=== PATIENT | male | born 1930 | race Caucasian/White ===

== ENCOUNTER 2016-10-01 16:19 | Emergency (ER) | payer OTHER ==
[~2016-10-01] VITALS: Ht 190.5 cm; Wt 110.1 kg
[~2016-10-01 16:19] MED LIST: ACET-1256 PO; ALBUAER19 INH; AMIO200T4 PO; CLC100X PO; GUAI1TAB55 PO; INDA1TAB3 PO; LPT/40 PO; METO-551 PO; OXYC1CAP5 PO; POLY335025 PO; POTA1CAP2 PO; PRT40 PO; SYMIN160 INH; TIOTCAP INH; TRIA3AER NAE; WARF1TAB PO; ZAFI1TAB10 PO
[2016-10-01 16:30] VITALS: TEMP 36.4; Ht 190.5 cm; Wt 110.1 kg
[2016-10-01] MEDS ORDERED: XYLOCAINE 1%/SOD BICARB 20 ML VIAL INFIL ONE (17:00)
[2016-10-01] MEDS ORDERED: TRIA1SPR4 NAE (17:07)
[2016-10-01] MEDS ORDERED: SPRIN/30 INH (17:07)
[2016-10-01 17:25] LABS: BASO % 0.4 %; BASO ABS # 0.03 K/uL (0-0.2); COMPLETE YES; EOS % 0.9 %; HEMATOCRIT 47.5 % (42-52); IG% 0.1 %; LYMPH % 7.8 %; LYMPH ABS # 0.66 K/uL (1.2-3.4); MEAN CELL VOLUME 91.5 fL (80-100); MEAN CORPUSCULAR HEMOGLOBIN 30.3 pg (25-34); MEAN CORPUSCULAR HGB CONC 33.1 g/dl (32-36); MEAN PLATELET VOLUME 10.9 fL (7.4-10.4); MONO % 9.8 %; PLATELET COUNT 151 K/uL (130-400); RED BLOOD COUNT 5.19 M/uL (4.7-6.1); WHITE BLOOD COUNT 8.51 K/uL (4.8-10.8)
[2016-10-01 17:41] LABS: BUN/CREATININE RATIO 18.9 (10-20); CREATININE 1.4 mg/dl (0.60-1.40); POTASSIUM 3.4 mmol/L (3.5-5.1)
--- NOTE | 2016-10-01 17:49 | DIAGNOSTIC IMAGING REPORT ---
CT OF THE HEAD WITHOUT CONTRAST CLINICAL HISTORY: Fall. Evaluate for bleed. COMPARISON STUDY: No previous studies for comparison. CT DOSE: 712.55 mGy.cm TECHNIQUE: Helical axial images of the head were obtained without IV contrast. Automated exposure control was utilized for the study. FINDINGS: No acute intracranial hemorrhage, midline shift or mass effect is present. Brain volume is normal for age. Ventricular system is unremarkable. The basilar cisterns are patent. There are no extra-axial collections. Moderate white matter hypodensity suggests small vessel disease. There is mild bilateral basal ganglia calcification. No findings to suggest acute dural sinus thrombosis or acute territorial infarct are noted. There is no calvarial fracture. IMPRESSION: 1. No acute intracranial findings. 2. No calvarial fracture. Electronically signed by: Robert Maier M.D. 10/01/2016 5:47 PM Dictated Date/Time: 10/01/2016 5:44 PM
[2016-10-01 19:57] LABS: INR 3.4 (0.9-1.1); PROTHROMBIN TIME (PATIENT) 38.7 SECONDS (9.0-12.0)
[2016-10-01 20:27] VITALS: BP 99/69; PULSE 71; O2SAT 93
--- NOTE | 2016-10-01 23:45 | EMERGENCY ROOM VISIT NOTE ---
History Report prepared by Bobo: Jessica Hammond Under the Supervision of: Dr. Ayush Rice M.D. First contact with patient: 16:41 Chief Complaint: FALL Stated Complaint: FELL,CUT ON RT EAR History of Present Illness The patient is an 86 year old male who presents to the Emergency Room with complaints of a fall that occurred just prior to arrival. He states that he was at his grandson's basketball game when he went to get a drink from the water fountain. He notes his balance is not the best and uses a walker. The patient turned after his drink and lost his balance and fell to the ground hitting his right ear on a plastic trash can. He denies LOC. He states he was not dizzy or lightheaded or feeling ill when he fell. He does state that he was getting over a recent cold but feels recovered. He does state that he has not been eating as much. The patient also fell onto his right elbow but denies any injuries. A nurse was in the stands at the game and told him to come to the ED for sutures to his laceration on his right ear. He denies chest pain, shortness of breath, or palpations. The patient is on Warafin. He notes that he feels at baseline now. His tetanus he believes is up-to-date. Source of History: patient Onset: just SECOND CHEF Position: ear (right) Quality: other (laceration) Timing: constant Associated Symptoms: No SOB, No chest pain Note: Patient notes he experienced lightheadedness. Review of Systems See HPI for pertinent positives & negatives. A total of 10 systems reviewed and were otherwise negative. Past Medical & Surgical Medical Problems: (1) Asthma (2) Heart valve disorder (3) History of DVT Family History Cancer Social History Smoking Status: Never Smoker Drug Use: none Marital Status: Housing Status: lives with family Occupation Status: retired Current/Historical Medications Scheduled Atorvastatin (Lipitor), 20 MG PO DAILY Budesonide/Formoterol Fumarate (Symbicort 160/4.5 Inhaler ), 2 PUFFS INH BID Guaifenesin Ext Rel (Mucinex Ext Rel), 600 MG PO Q12 Indapamide (Lozol), 1.25 MG PO DAILY Metoprolol Tartrate (Lopressor), 75 MG PO BID Pantoprazole (Pantoprazole Sodium), 40 MG PO BID Potassium Chloride (Potassium Chloride Er), 10 MEQ PO DAILY Tiotropium Lisle (Spiriva Handihaler), 1 CAP INH DAILY Triamcinolone Acetonide (Nasal (Nasacort Allergy 24Hr), 1 SPRAY BIMAL DAILY Warfarin Sodium (Coumadin), 1 TAB PO DAILY Zafirlukast (Accolate), 20 MG PO DAILY Scheduled PRN Acetaminophen (Tylenol), 500-1,000 MG PO Q6 PRN for Pain or Fever Allergies Coded Allergies: No Known Allergies (Verified , 08/14/12) Physical Exam Vital Signs Date Time Temp Pulse Resp B/P Pulse Ox O2 Delivery O2 Flow Rate FiO2 10/01/16 20:27 71 16 99/69 93 10/01/16 19:15 79 16 114/82 94 Room Air 10/01/16 17:44 87 16 131/88 92 Room Air 10/01/16 16:30 36.4 95 18 131/76 95 Room Air Physical Exam Constitutional: Vital signs reviewed. Eyes: Pupils are equal round reactive to light. Conjunctiva are noninjected. ENT: 6 cm superficial laceration behind the right ear without active bleeding. Pharynx is clear without erythema or exudate. Mucous membranes are moist. Neck supple without meningeal signs. No midline tenderness to the cervical spine. Respiratory: Clear to auscultation bilaterally. Breath sounds are equal bilaterally. Cardiovascular: Regular rate and rhythm. No rubs or gallops. GI: Soft, nondistended and nontender. Bowel sounds are present. Musculoskeletal: No lower extremity tenderness. No hip tenderness. No midline tenderness to the thoracic or lumbosacral spine. Integumentary: No cyanosis. Superficial abrasions to the right elbow without bony tenderness. Neurologic: The patient is awake and alert. Cranial nerves II-XII are intact. Motor is 5 out of 5 all extremities. Sensation is intact to light touch all extremities. Normal speech. No pronator drift. Psychiatric: Normal affect. Medical Decision & Procedures ER Provider Diagnostic Interpretation: CT results as stated below per my review and radiologist interpretation. CT OF THE HEAD WITHOUT CONTRAST CLINICAL HISTORY: Fall. Evaluate for bleed. COMPARISON STUDY: No previous studies for comparison. CT DOSE: 712.55 mGy.cm TECHNIQUE: Helical axial images of the head were obtained without IV contrast. Automated exposure control was utilized for the study. FINDINGS: No acute intracranial hemorrhage, midline shift or mass effect is present. Brain volume is normal for age. Ventricular system is unremarkable. The basilar cisterns are patent. There are no extra-axial collections. Moderate white matter hypodensity suggests small vessel disease. There is mild bilateral basal ganglia calcification. No findings to suggest acute dural sinus thrombosis or acute territorial infarct are noted. There is no calvarial fracture. IMPRESSION: 1. No acute intracranial findings. 2. No calvarial fracture. Electronically signed by: Robert Maier M.D. 10/01/2016 5:47 PM Dictated Date/Time: 10/01/2016 5:44 PM Laboratory Results 10/01/16 17:10 Red Blood Count 5.19, Mean Corpuscular Volume 91.5, Mean Corpuscular Hemoglobin 30.3, Mean Corpuscular Hemoglobin Concent 33.1, Mean Platelet Volume 10.9, Neutrophils (%) (Auto) 81.0, Lymphocytes (%) (Auto) 7.8, Monocytes (%) (Auto) 9.8, Eosinophils (%) (Auto) 0.9, Basophils (%) (Auto) 0.4, Neutrophils # (Auto) 6.90, Lymphocytes # (Auto) 0.66, Monocytes # (Auto) 0.83, Eosinophils # (Auto) 0.08, Basophils # (Auto) 0.03 10/01/16 17:10 Test 10/01/16 17:10 10/01/16 17:49 White Blood Count 8.51 K/uL (4.8-10.8) Red Blood Count 5.19 M/uL (4.7-6.1) Hemoglobin 15.7 g/dL (14.0-18.0) Hematocrit 47.5 % (42-52) Mean Corpuscular Volume 91.5 fL (80-100) Mean Corpuscular Hemoglobin 30.3 pg (25-34) Mean Corpuscular Hemoglobin Concent 33.1 g/dl (32-36) Platelet Count 151 K/uL (130-400) Mean Platelet Volume 10.9 fL (7.4-10.4) Neutrophils (%) (Auto) 81.0 % Lymphocytes (%) (Auto) 7.8 % Monocytes (%) (Auto) 9.8 % Eosinophils (%) (Auto) 0.9 % Basophils (%) (Auto) 0.4 % Neutrophils # (Auto) 6.90 K/uL (1.4-6.5) Lymphocytes # (Auto) 0.66 K/uL (1.2-3.4) Monocytes # (Auto) 0.83 K/uL (0.11-0.59) Eosinophils # (Auto) 0.08 K/uL (0-0.5) Basophils # (Auto) 0.03 K/uL (0-0.2) RDW Standard Deviation 44.3 fL (36.4-46.3) RDW Coefficient of Variation 13.3 % (11.5-14.5) Immature Granulocyte % (Auto) 0.1 % Immature Granulocyte # (Auto) 0.01 K/uL (0.00-0.02) Anion Gap 11.0 mmol/L (3-11) Est Creatinine Clear Calc Drug Dose 52.6 ml/min Estimated GFR () 53.1 Estimated GFR (Non- 45.8 BUN/Creatinine Ratio 18.9 (10-20) Calcium Level 9.0 mg/dl (8.5-10.1) Troponin I < 0.015 ng/ml (0-0.045) Prothrombin Time 38.7 SECONDS (9.0-12.0) Prothromb Time International Ratio 3.4 (0.9-1.1) Laboratory results as reviewed by me. ECG Indication: other (Fall) Rate (beats per minute): 89 Rhythm: sinus rhythm Findings: 1st degree AV block, LBBB Change: LBBB is new from November 2014. ED Course 1648: The patient was evaluated in room C6. A complete history and physical exam was performed. 1699: Buffered Lidocaine 1% Inj 20 ml INFIL. 1924: Laceration repaired by Luda RAYGOZA. I discussed the test results with the patient. Waiting results of INR. 2027: I spoke with the patient about his elevated INR. He will note take his Coumadin dosage angel. 2031: Upon reevaluation, the patient appeared to have improvement of his symptoms. I discussed angel's findings with him. He verbalized agreement of the treatment plan. He was discharged home. Medical Decision This is an 86-year-old male on Coumadin who presents with injuries after fall. Differential diagnosis includes contusion, concussion, skull fracture, intracranial hemorrhage, laceration. I did perform a limited focused review of portions of the patient's old chart on the electronic medical record. The patient has had no recent pertinent visits to this hospital. I did evaluate the patient as noted above. The patient is presenting with what he thinks was a mechanical fall. He did state that before he got up to get a drink he did feel thirsty and slightly weak but he denies feeling that way at this time. He states that before he fell he did not feel lightheaded or weak or have any symptoms. He states he simply lost his balance when turning around from the water fountain. He is on Coumadin but has not taken his dose today. IV access was established. The patient was placed on a continuous nurse monitoring. I did order and personally review the patient's 12-lead EKG as described above. He does have a left bundle branch block which I did not see on his prior EKG. He denies having any chest discomfort or shortness of breath. It is unclear whether this is new or old. His last EKG available was from 2014. I did order and review the patient's blood work as noted in the electronic medical record. Troponin is negative. He has mild hypokalemia. His INR is 3.4. I did order a CT of the head. I did review the images myself as well as the radiology report as described above. There is no evidence of intracranial hemorrhage. I did discuss the test results with the patient and his . He has no symptoms at this time. His laceration was repaired by IDALMIS Galicia. Please see her dictation for further details. The patient was advised to hold his Coumadin tonight and restart it tomorrow. He will have his INR rechecked. He was given head injury and laceration precautions. Impression Primary Impression: Head injury Additional Impressions: Laceration of ear Fall Supratherapeutic INR Hypokalemia Scribe Attestation The scribe's documentation has been prepared under my direct and personally reviewed by me in its entirety. I confirm that the note above accurately reflects all work, treatment, procedures, and medical decision making performed by me. Departure Information Dispostion Home / Self-Care Referrals Galo Horton M.D. (PCP) Forms HOME CARE DOCUMENTATION FORM, IMPORTANT VISIT INFORMATION Patient Instructions ED Head Injury Closed, ED Laceration All, My [facility] Additional Instructions You have been examined and treated today on an emergency basis only. This is not a substitute for, or an effort to provide, complete comprehensive medical care. It is impossible to recognize and treat all injuries or illnesses in a single emergency department visit. It is therefore important that you follow up closely with your physician. Call as soon as possible for an appointment. Return for worsening symptoms or if you develop fever, vomiting, headache, chest pain, shortness breath or any other concerning symptoms. Your sutures need to be removed in one week. Problem Qualifiers Primary Impression: Head injury Encounter type: initial encounter Qualified Codes: S09.90XA - Unspecified injury of head, initial encounter Additional Impressions: Laceration of ear Encounter type: initial encounter Laterality: right Qualified Codes: S01.311A - Laceration without foreign body of right ear, initial encounter Fall Encounter type: initial encounter Qualified Codes: W19.XXXA - Unspecified fall, initial encounter
--- NOTE | 2016-10-02 11:05 | EMERGENCY ROOM VISIT NOTE ---
ED Visit Note EMERGENCY DEPARTMENT PROCEDURE NOTE: I was asked by Dr. Rice to repair the right ear wound of this 86-year-old white male patient. Please refer to their dictation for the complete history, physical exam, and ED course. EMERGENCY DEPARTMENT COURSE: The wound was prepped with Betadine and draped with sterile towels. The wound was anesthetized with 1% plain buffered lidocaine. The 6 cm L-shaped laceration was irrigated copiously using normal saline solution and direct pressure irrigation. Wound was explored thoroughly. There was no evidence for foreign body. There was no cartilage involvement. The wound was repaired using 11, 6-0 nylon sutures. Bacitracin was applied. Patient tolerated the procedure well.
== END 2016-10-01 20:49 | disposition home or self-care (01) ==
LOC: C.EDB 16:19 → C.EDC 20:49
DX: S01.311A Laceration without foreign body of right ear, initial encounter (principal); S09.90XA Unspecified injury of head, initial encounter; W19.XXXA Unspecified fall, initial encounter; Y93.67 Activity, basketball; I44.0 Atrioventricular block, first degree; I44.7 Left bundle-branch block, unspecified; E87.6 Hypokalemia; J45.909 Unspecified asthma, uncomplicated; Z95.2 Presence of prosthetic heart valve; Z86.718 Personal history of other venous thrombosis and embolism; Z79.01 Long term (current) use of anticoagulants; Z79.899 Other long term (current) drug therapy; Z80.9 Family history of malignant neoplasm, unspecified

== ENCOUNTER → 2017-03-22 | Outpatient (CLI) | payer OTHER ==
[~2017-03-22] MED LIST changes: -ALBUAER19 INH; -AMIO200T4 PO; -CLC100X PO; -OXYC1CAP5 PO; -POLY335025 PO; +SPRIN/30 INH; -TIOTCAP INH; +TRIA1SPR4 NAE; -TRIA3AER NAE
[2017-03-22 11:10] LABS: BASO % 0.6 %; BASO ABS # 0.03 K/uL (0-0.2); COMPLETE YES; EOS % 4.1 %; HEMATOCRIT 48.2 % (42-52); IG% 0.2 %; LYMPH % 23.5 %; LYMPH ABS # 1.25 K/uL (1.2-3.4); MEAN CELL VOLUME 92.2 fL (80-100); MEAN CORPUSCULAR HEMOGLOBIN 29.1 pg (25-34); MEAN CORPUSCULAR HGB CONC 31.5 g/dl (32-36); MEAN PLATELET VOLUME 10.3 fL (7.4-10.4); MONO % 13.4 %; NEUT % 58.2 %; PLATELET COUNT 167 K/uL (130-400); RED BLOOD COUNT 5.23 M/uL (4.7-6.1); WHITE BLOOD COUNT 5.31 K/uL (4.8-10.8)
[2017-03-22 11:39] LABS: ALT/SGPT 29 U/L (12-78); AST/SGOT 37 U/L (15-37); BLOOD UREA NITROGEN 24 mg/dl (7-18); BUN/CREATININE RATIO 18.7 (10-20); CALCIUM 8.9 mg/dl (8.5-10.1); CARBON DIOXIDE 30 mmol/L (21-32); CHLORIDE 104 mmol/L (98-107); GLUCOSE 102 mg/dl (70-99); POTASSIUM 3.7 mmol/L (3.5-5.1); SODIUM 142 mmol/L (136-145)
[2017-03-22 11:50] LABS: CHOLESTEROL 135 mg/dl (0-200); CHOLESTEROL/HDL RATIO 3.6; HDL CHOLESTEROL 37 mg/dl; LDL CHOLESTEROL CALCULATED 75 mg/dl; TRIGLYCERIDES 116 mg/dl (0-150); VERY LOW DENSITY LIPOPROT CALC 23 mg/dl
[2017-03-22 12:33] LABS: ESTIMATED AVERAGE GLUCOSE 117 mg/dl; HA1C FLAG Normal (Normal)
[2017-03-22 15:01] LABS: URINE APPEARANCE CLEAR (CLEAR); URINE BILIRUBIN NEG (NEG); URINE COLOR YELLOW; URINE NITRITE NEG (NEG); URINE PH 7.5 (4.5-7.5); URINE SPECIFIC GRAVITY 1.018 (1.000-1.030); UROBILINOGEN NEG (NEG)
[2017-03-22 15:06] LABS: MANUAL MICROSCOPIC REQUIRED? NO; REVIEW REQ? NO
== END | disposition home or self-care (01) ==
LOC: C.LABBC 08:29
PROVIDERS: ATTEND Internal Medicine
DX: N28.9 Disorder of kidney and ureter, unspecified (principal); E78.00 Pure hypercholesterolemia, unspecified; R73.9 Hyperglycemia, unspecified; I10 Essential (primary) hypertension

== ENCOUNTER → 2017-09-29 | Outpatient (CLI) | payer OTHER ==
[2017-09-29 12:21] LABS: INR 1.3 (0.9-1.1)
== END | disposition home or self-care (01) ==
LOC: C.LABSPEC 12:04
PROVIDERS: ATTEND Internal Medicine
DX: Z86.718 Personal history of other venous thrombosis and embolism (principal); Z51.81 Encounter for therapeutic drug level monitoring; Z79.01 Long term (current) use of anticoagulants

== ENCOUNTER → 2017-11-08 | Outpatient (CLI) | payer OTHER ==
[2017-11-08 13:11] LABS: BASO % 0.4 %; BASO ABS # 0.02 K/uL (0-0.2); EOS % 2.3 %; EOS ABS # 0.13 K/uL (0-0.5); HEMATOCRIT 47.1 % (42-52); HEMOGLOBIN 15.4 g/dL (14.0-18.0); LYMPH % 17.5 %; LYMPH ABS # 0.99 K/uL (1.2-3.4); MEAN CELL VOLUME 92.9 fL (80-100); MEAN CORPUSCULAR HEMOGLOBIN 30.4 pg (25-34); MEAN CORPUSCULAR HGB CONC 32.7 g/dl (32-36); MEAN PLATELET VOLUME 10.4 fL (7.4-10.4); MONO % 11.3 %; MONO ABS # 0.64 K/uL (0.11-0.59); NEUT % 68.5 %; NEUT ABS # 3.88 K/uL (1.4-6.5); PLATELET COUNT 160 K/uL (130-400); RED CELL DISTRIBUTION WIDTH CV 13.4 % (11.5-14.5); RED CELL DISTRIBUTION WIDTH SD 45.5 fL (36.4-46.3); WHITE BLOOD COUNT 5.66 K/uL (4.8-10.8)
[2017-11-08 14:02] LABS: ALT/SGPT 36 U/L (12-78); AST/SGOT 38 U/L (15-37); BLOOD UREA NITROGEN 31 mg/dl (7-18); CARBON DIOXIDE 30 mmol/L (21-32); CHOLESTEROL 123 mg/dl (0-200); CREATININE 1.48 mg/dl (0.60-1.40); GLUCOSE 103 mg/dl (70-99); POTASSIUM 3.6 mmol/L (3.5-5.1); SODIUM 140 mmol/L (136-145)
[2017-11-08 14:03] LABS: HEMOGLOBIN A1C 5.6 % (4.5-5.6)
[2017-11-08 14:12] LABS: LDL CHOLESTEROL CALCULATED 67 mg/dl
== END | disposition home or self-care (01) ==
LOC: C.LABBC 11:13
PROVIDERS: ATTEND Internal Medicine
DX: E78.00 Pure hypercholesterolemia, unspecified (principal)

== ENCOUNTER 2019-02-04 20:20 | Inpatient (IN) ==
--- OUTSIDE RECORDS SUMMARY | 2019-02-04 20:24 | External Medical Summary | Continuity of Care Document ---
:1930 Author Name Jackie Baez, Provider Address Unavailable Unavailable , Care Team Providers Name Role Phone Rad Masters M.D. 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) Constipation (564.00) (K59.00) Anemia due to gastrointestinal blood loss (280.0) (D50.0) Enlarged prostate with lower urinary tract symptoms (LUTS) ( 600.01) (N40.1) Restrictive lung disease (518.89) (J98.4) Asthma (493.90) (J45.909) 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) Anticoagulant long-term use (V58.61) (Z79.01) Aortic valve stenosis (424.1) (I35.0) 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 Refills: 0 Indapamide 1.25 MG Oral Tablet; Take 1 tablet daily Nestor Horton Start: 12-Sep-2018 Quantity: 90 Refills: 3 Metoprolol Tartrate 25 MG Oral Tablet; TAKE 2 TABLET T wice daily Nestor Horton Start: 01-Feb-2016 Quantity: 360 Refills: 3 Probiotic Oral Capsule; TAKE 1 CAPSULE 3 times daily Refills: 0 Amoxicillin 500 MG Oral Capsule; TAKE 4 CAPSULES 1 HOUR PRIOR TO DENTAL APPOINTMENT. Nestor Horton Quantity: 16 Refills: 0 Tylenol Extra Strength 500 MG Oral Tablet; Take as directed Refills: 0 Warfarin Sodium 2.5 MG Oral Tablet; Take 1 tablet daily KODY Mayorga Start: 10-Apr-2018 Quantity: 90 Refills: 3 Ipratropium [place]wood 0.03 % Nasal Solutio n; 1-2 puffs in each nostril daily to bid as needed Nestor Masters Start: 13-Aug-2018 Quantity: 1 30 ML Bottle Refills: 11 Atorvastatin Calcium 20 MG Oral Tablet; TAKE 1 TABLET AT BEDTIME KODY Oswald Start: 07-Jun-2018 Quantity: 90 Refills: 3 Mucinex 600 MG TBCR; TAKE 1 OR 2 TABLETS TWICE DAILY NEED ED FOR CONGESTION. Refills: 0 Pantoprazole Sodium 40 MG Oral Tablet De layed Release; Take 1 tablet twice a day KODY Oswald Start: 07-Jun-2018 Quantity: 180 Refills: 3 Procedures History of Hip Replacement Status: Compl eted History of Shoulder Arthroplasty Total Shoulder Replacement Status: Completed History of Interruption Inferior Vena Cava Andre Filter Status: Completed Placement History of Diagnostic Esophagogastroduodenoscopy Status: Completed H/O aortic valve replacement Immunizations Influenza On: 05-Jul-2011 16:03 Lot #: [id number], [employer] PASTEUR Influenza On: 06-Jul-2012 11:12 Lot #: [id number], [employer]FI PA[employer]UR Influenza On: 16-Jul-2013 11:36 Lot #: [id number], SANOFI PASTEUR Fluzone INJ On: 30-Jul-2014 9:24 Lot #: [id number], SANOFI PASTEUR Fluzone High-Dose Intramuscular Suspension On: 14-Jul-2015 9: 20 Lot #: [id number], SANOFI PASTEUR Influenza On: 16-Jul-2016 16:42 Lot #: [id number], SANOFI PASTEUR Family History Unknown Family Member Family history of Nephrolithiasis Status: Active Commen ts: Family History Family history of Cancer Status: Active Comments: Famil y History natural son Family history of Cancer Status: Active Social History - Smoking Status Never smoker Plan of Treatment Planned Encounters Appointment; Claudia Oswald PA-C Start: 18-Mar-2019 13:30 Req uest Planned Observations Planned Goals not documented Results No Known Results Results not documented Vital Signs 31-Jan-2019 10:45 other 2.6 Comments: INR other 2.1875 Comments: INR Goal 18-Jan-2019 15:02 other 1.8 Comments: INR other 2.1875 Comments: INR Goal Encounters Appointment; Galo Horton M.D. 17-Dec-2018 13:30 Encounter Diagnosis: Problem not documented Appointment; Galo Horton M.D. 13-Sep-2018 15:15 Encounter Diagnosis: Problem not documented Appointment; Maurice Macias M.D. 16-Aug-2018 10:30 Encounter Diagnosis: Problem not documented Appointment; Rad Masters M.D. 13-Aug-2018 11:30 Encounter Diagnosis: Problem not documented Appointment; Pulmonary, Funct Testing 13-Aug-2018 11:15 Encounter Diagnosis: Problem not documented Appointment; Galo Horton M.D. 12-Jun-2018 13:15 Encounter Diagnosis: Problem not documented Appointment; Galo Horton M.D. 27-Feb-2018 13:45 Encounter Diagnosis: Problem not documented Appointment; Maurice Macias M.D. 14-Feb-2018 15:15 Encounter Diagnosis: Problem not documented Appointment; Echo/Stress, Echo/Stress 01-Feb-2018 8:45 Encounter Diagnosis: Problem not documented Appointment; Rad Masters M.D. 22-Jan-2018 9:30 Encounter Diagnosis: Problem not documented Appointment; Pulmonary, Funct Testing 22-Jan-2018 9:15 Encounter Diagnosis: Problem not documented Appointment; [facility] 14-Nov-2017 13:50 Encounter Diagnosis: Problem not documented Appointment; Galo Horton M.D. 14-Nov-2017 13:00 Encounter Diagnosis: Problem not documented Appointment; Maurice Macias M.D. 01-Aug-2017 13:00 Encounter Diagnosis: Problem not documented Appointment; Galo Horton M.D. 31-Jul-2017 11:45 Encounter Diagnosis: Problem not documented Appointment; Rad Masters M.D. 24-Jul-2017 9:30 Encounter Diagnosis: Problem not documented Appointment; Pulmonary, Funct Testing 24-Jul-2017 9:15 Encounter Diagnosis: Problem not documented Appointment; Galo Horton M.D. 28-Mar-2017 11:45 Encounter Diagnosis: Problem not documented Appointment; Claudia Oswald PA-C 18-Mar-2019 13:30 Encounter Diagnosis: Problem not documented
[2019-02-04] MEDS ORDERED: ONDANSETRON INJ 2 MG/ML 2 ML VIAL ONE (20:38)
[2019-02-04 20:51] LABS: Basophils # (auto) 0.02 K/uL (0-0.2); Basophils % (auto) 0.3 %; Eosinophils # (auto) 0.02 K/uL (0-0.5); Eosinophils % (auto) 0.3 %; Hematocrit (blood only) 41.7 % (42-52); Hemoglobin 13.9 g/dL (14.0-18.0); Immature Granulocytes # (auto) 0.01 K/uL (0.00-0.02); Immature Granulocytes % (auto) 0.1 %; Lymphocytes # (auto) 0.56 K/uL (1.2-3.4); Lymphocytes % (auto) 8.2 %; Mean Corpuscular Hgb Conc 33.3 g/dL (32-36); Mean Corpuscular Volume 89.9 fL (80-100); Mean Platelet Volume 10.2 fL (7.4-10.4); Monocytes # (auto) 0.46 K/uL (0.11-0.59); Monocytes % (auto) 6.7 %; Neutrophils # (auto) 5.76 K/uL (1.4-6.5); Neutrophils % (auto) 84.4 %; Platelet Count 159 K/uL (130-400); RDW Coefficient of Variation 14.3 % (11.5-14.5); Red Blood Count 4.64 M/uL (4.7-6.1); White Blood Count 6.83 K/uL (4.8-10.8)
[2019-02-04] MEDS ORDERED: MoRPHine SULFATE 4 MG/ML 1 ML CARP\\VIAL IV STA (20:56)
[2019-02-04 21:05] LABS: Albumin Level 3.4 gm/dl (3.4-5.0); BUN Creatinine Ratio 21.8 (10-20); Creatinine Clr Calc Pharmacy 40.8 ml/min; Est GFR (African American) 49.4; Est GFR (Non-African American) 42.6; Potassium 4.1 mmol/L (3.5-5.1)
[2019-02-04 21:08] LABS: Albumin Globulin Ratio 0.8 (0.9-2); Bilirubin,Total 0.9 mg/dl (0.2-1); Globulin 4.1 gm/dl (2.5-4.0); Total Protein 7.5 gm/dl (6.4-8.2)
[2019-02-04] MEDS ORDERED: ONDANSETRON INJ 2 MG/ML 2 ML VIAL IV STA (21:17)
--- NOTE | 2019-02-04 22:02 | Ultrasound Report ---
US gallbladder HISTORY: Pain. Nausea. upper pain eval for cholecystitis COMPARISON: 11/25/2014 FINDINGS: Nonvisualization of the gallbladder due to overlying bowel. Both ductal system not seen. Pancreas is unremarkable. No evidence for renal hydronephrosis. Trace free fluid. Chronic region. IMPRESSION: 1. Limited study due to overlying bowel content. 2. Nonvisualization of the gallbladder and biliary ductal system. 3. Trace perihepatic fluid. The above report was generated using voice recognition software. It may contain grammatical, syntax or spelling errors. Electronically signed by: Bulmaro Chi M.D. 02/04/2019 10:01 PM
[2019-02-04 23:46] LABS: Appearance Urine Cloudy (Clear); Bacteria Urine Automated Negative (Negative); Bilirubin Urine Negative (Negative); Blood Urine Negative (Negative); Color Urine Dark Yellow; Epithelial Cell Urine Auto >30 /lpf (0-5); Glucose Urine UA Negative (Negative); Ketones Urine Trace (Negative); Leukocyte Esterase Urine Negative (Negative); Nitrite Urine Negative (Negative); Protein Urine Negative (Negative); RBC Urine Automated 0-4 /hpf (0-4); Specific Gravity Urine 1.021 (1.000-1.030); Urobilinogen Urine Negative (Negative); pH Urine 5.5 (4.5-7.5)
[2019-02-05] MEDS ORDERED: MoRPHine SULFATE 2 MG/ML CARP IV STA (00:31)
--- NOTE | 2019-02-05 00:34 | Emergency Department Note ---
Entered by Shivani Stewart acting as a scribe for Ayush Rice MD History of Present Illness General Chief complaint: Abdominal Pain Stated complaint: Abdominal Pain Source: patient History of Present Illness Onset (ago): hour(s) 8 Location: abdomen (upper) Pain Consistency: + other (persistent ) Maximum Pain Intensity: 6 Current Pain Intensity: 6 Quality: + aching and + sharp Associated symptoms: + nausea/vomiting and + other (negative urinary symptoms; negative blood in urine; negative black or bloody stools ); no chest pain and no shortness of breath The patient is a 88 year old male who presents to the Emergency Room with complaints of persistent abdominal pain that began at 1230 today, about 8 hours prior to arrival. The patient describes this pain as sharp and aching. He rates his pain at a 6/10. The patient states that he has had nausea and vomiting during this time. He denies chest pain, shortness of breath, urinary symptoms, blood in his urine, and black or bloody stools. The patient states that he is on Warfarin. He states that he still has his gallbladder. Home Medications Home Medications Medication Instructions Recorded Confirmed Type ZAFIRLUKAST (ACCOLATE) 20 mg PO DAILY #0 12/28/11 History ATORVASTATIN (LIPITOR) 20 mg PO DAILY #0 tab 03/22/13 History Indapamide (Lozol) 1.25 mg PO DAILY #0 tab 03/22/13 History Budesonide/Formoterol Fumarate 2 puff INHALATION BID #0 inhaler 11/08/13 History (Symbicort 160/4.5 Inhaler ) POTASSIUM CHLORIDE (POTASSIUM 10 meq PO DAILY #0 11/08/13 History CHLORIDE ER) Acetaminophen (Tylenol) 500 - 1,000 mg PO Q6 PRN #0 tab 11/13/14 History GUAIFENESIN EXT REL (MUCINEX EXT 600 mg PO Q12 #0 tab 11/13/14 History REL) METOPROLOL TARTRATE (LOPRESSOR) 75 mg PO BID #0 tab 11/13/14 History Pantoprazole (Pantoprazole Sodium) 40 mg PO BID #60 tab 11/19/14 Rx WARFARIN SODIUM (COUMADIN) 1 tab PO DAILY 30 Days #30 tab 01/28/16 History TIOTROPIUM BROMIDE (Spiriva 1 cap INHALATION DAILY #0 inhaler 01/21/17 History Handihaler) Triamcinolone Acetonide (Nasal 1 spray BIMAL DAILY #0 10/01/16 History (Nasacort Allergy 24Hr) Allergies Allergy/AdvReac Type Severity Reaction Status Date / Time No Known Allergies Allergy Unknown Verified 08/14/12 09:07 Past Med/Surg History Medical History Asthma (Chronic) Heart valve disorder (Chronic) Social History Feels Safe at Home: Yes Smoking Status: Never smoker Review of Systems See HPI for pertinent positives & negatives. and A total of 10 systems reviewed and were otherwise negative Physical Exam Vital Signs Vital Signs - 24 hr 02/04/19 20:24 02/04/19 20:26 02/04/19 20:52 Temperature 36.7 C Temperature Source Oral Sepsis Recent Fever Within 48 Hours No Sepsis Action Taken by Nursing No Action Required Pulse Rate 75 72 73 Pulse Rate [Bilateral] Pulse Rate from SpO2 Sensor 72 72 Pulse Rhythm Regular Pulse Rhythm [Bilateral] Pulse Strength Normal Pulse Strength [Bilateral] Respiratory Rate 19 18 32 H Respiratory Effort / Characteristics Non-Labored Spontaneous Respiratory Depth Normal Respiratory Pattern Regular Blood Pressure 169/84 H 169/84 H Blood Pressure [Right Arm] Blood Pressure Mean 112 112 Blood Pressure Mean [Right Arm] Blood Pressure Position Lying Blood Pressure Position [Right Arm] Pulse Oximetry 95 93 93 Oxygen Delivery Method Room Air Oxygen Flow Rate 02/04/19 21:00 02/04/19 21:05 02/04/19 21:10 Temperature Temperature Source Sepsis Recent Fever Within 48 Hours Sepsis Action Taken by Nursing Pulse Rate 70 65 Pulse Rate [Bilateral] Pulse Rate from SpO2 Sensor 71 65 Pulse Rhythm Pulse Rhythm [Bilateral] Pulse Strength Pulse Strength [Bilateral] Respiratory Rate 27 H 19 Respiratory Effort / Characteristics Respiratory Depth Respiratory Pattern Blood Pressure Blood Pressure [Right Arm] Blood Pressure Mean Blood Pressure Mean [Right Arm] Blood Pressure Position Blood Pressure Position [Right Arm] Pulse Oximetry 91 98 97 Oxygen Delivery Method Room Air Nasal Cannula Oxygen Flow Rate 3 02/04/19 21:11 02/04/19 21:20 02/04/19 21:30 Temperature Temperature Source Sepsis Recent Fever Within 48 Hours Sepsis Action Taken by Nursing Pulse Rate 73 70 72 Pulse Rate [Bilateral] Pulse Rate from SpO2 Sensor 73 71 71 Pulse Rhythm Pulse Rhythm [Bilateral] Pulse Strength Pulse Strength [Bilateral] Respiratory Rate 19 15 20 Respiratory Effort / Characteristics Respiratory Depth Respiratory Pattern Blood Pressure 157/82 H Blood Pressure [Right Arm] Blood Pressure Mean 107 Blood Pressure Mean [Right Arm] Blood Pressure Position Blood Pressure Position [Right Arm] Pulse Oximetry 98 97 96 Oxygen Delivery Method Oxygen Flow Rate 02/04/19 22:24 02/04/19 22:30 02/04/19 22:40 Temperature Temperature Source Sepsis Recent Fever Within 48 Hours Sepsis Action Taken by Nursing Pulse Rate 76 66 66 Pulse Rate [Bilateral] Pulse Rate from SpO2 Sensor 75 67 69 Pulse Rhythm Pulse Rhythm [Bilateral] Pulse Strength Pulse Strength [Bilateral] Respiratory Rate 22 17 18 Respiratory Effort / Characteristics Respiratory Depth Respiratory Pattern Blood Pressure 177/110 H Blood Pressure [Right Arm] Blood Pressure Mean 132 Blood Pressure Mean [Right Arm] Blood Pressure Position Blood Pressure Position [Right Arm] Pulse Oximetry 97 97 95 Oxygen Delivery Method Oxygen Flow Rate 02/04/19 22:47 02/04/19 22:49 02/04/19 23:26 Temperature Temperature Source Sepsis Recent Fever Within 48 Hours Sepsis Action Taken by Nursing Pulse Rate 73 Pulse Rate [Bilateral] 77 Pulse Rate from SpO2 Sensor 73 Pulse Rhythm Pulse Rhythm [Bilateral] Regular Pulse Strength Pulse Strength [Bilateral] Normal Respiratory Rate 24 18 Respiratory Effort / Characteristics Non-Labored Spontaneous Respiratory Depth Normal Respiratory Pattern Regular Blood Pressure 165/90 H Blood Pressure [Right Arm] 165/83 H Blood Pressure Mean 115 Blood Pressure Mean [Right Arm] 110 Blood Pressure Position Blood Pressure Position [Right Arm] Lying Pulse Oximetry 88 L 93 97 Oxygen Delivery Method Room Air Nasal Cannula Room Air Oxygen Flow Rate 3 02/04/19 23:40 Temperature Temperature Source Sepsis Recent Fever Within 48 Hours Sepsis Action Taken by Nursing Pulse Rate Pulse Rate [Bilateral] Pulse Rate from SpO2 Sensor Pulse Rhythm Pulse Rhythm [Bilateral] Pulse Strength Pulse Strength [Bilateral] Respiratory Rate 18 Respiratory Effort / Characteristics Non-Labored Spontaneous Respiratory Depth Normal Respiratory Pattern Blood Pressure Blood Pressure [Right Arm] Blood Pressure Mean Blood Pressure Mean [Right Arm] Blood Pressure Position Blood Pressure Position [Right Arm] Pulse Oximetry 97 Oxygen Delivery Method Nasal Cannula Oxygen Flow Rate 3 Constitutional: Vital signs reviewed. Eyes: Pupils are equal round reactive to light. Conjunctiva are noninjected. ENT: Pharynx is clear without erythema or exudate. Mucous membranes are moist. Neck supple without meningeal signs. Respiratory: Clear to auscultation bilaterally. Breath sounds are equal bilaterally. Cardiovascular: Regular rate and rhythm. No rubs or gallops. GI: Soft, nondistended. Bowel sounds are present. Epigastric RUQ tenderness. Negative Verduzco's sign. Musculoskeletal: No peripheral edema. No lower extremity tenderness. Integumentary: No cyanosis. Neurological: The patient is awake and alert. No focal deficits. Psychiatric: Normal affect. Course 2048: The patient was evaluated in room B10, and a complete history and physical examination were performed. 2226: I checked on the patient and updated him on his test results. The patient is going to get a CT scan because his gallbladder could not be seen on US. 0019: I discussed the test results with the patient. He states that his pain is creeping back. 0022: I discussed the case with Dr. [facility] Hospitalist who accepted the patient for further evaluation. Administered Medications Discontinued Medications Morphine Sulfate (Morphine Sulfate) 4 mg IV NOW STA Stop: 02/04/19 20:57 Last Admin: 02/04/19 21:08 Dose: 4 mg Documented by: [id number] Ondansetron HCl (Zofran) Confirm Administered Dose 4 mg .ROUTE .STK-MED ONE Stop: 02/04/19 20:39 Last Admin: 02/04/19 20:50 Dose: 4 mg Documented by: [id number] Ondansetron HCl (Zofran) 4 mg IV NOW STA Stop: 02/04/19 21:18 Last Admin: 02/04/19 21:18 Dose: Not Given Documented by: [id number] Medical Decision Making Differential Diagnosis Differential diagnoses include cholelithiasis, cholecystitis, pancreatitis, peptic ulcer disease, choledocholithiasis, and others were considered. Medical Records Attestation: I reviewed the patient's medical records. (The patient has no recent pertinent visits. ) Home Medications Current Medication List: was personally reviewed by me Laboratory Data Attestation: I reviewed the patient's lab results. Result diagrams: 02/04/19 20:33 02/04/19 20:33 Lab Results 02/04/19 02/04/19 02/04/19 Range/Units 20:33 20:33 23:35 WBC 6.83 (4.8-10.8) K/uL RBC 4.64 L (4.7-6.1) M/uL Hgb 13.9 L (14.0-18.0) g/dL Hct 41.7 L (42-52) % MCV 89.9 (80-100) fL MCH 30.0 (25-34) pg MCHC 33.3 (32-36) g/dL RDW Std Deviation 47.0 H (36.4-46.3) fL RDW Coeff of June 14.3 (11.5-14.5) % Plt Count 159 (130-400) K/uL MPV 10.2 (7.4-10.4) fL Immature Gran % (Auto) 0.1 % Neut % (Auto) 84.4 % Lymph % (Auto) 8.2 % [place] % (Auto) 6.7 % Eos % (Auto) 0.3 % Baso % (Auto) 0.3 % Immature Gran # (Auto) 0.01 (0.00-0.02) K/uL Neut # (Auto) 5.76 (1.4-6.5) K/uL Lymph # (Auto) 0.56 L (1.2-3.4) K/uL [place] # (Auto) 0.46 (0.11-0.59) K/uL Eos # (Auto) 0.02 (0-0.5) K/uL Baso # (Auto) 0.02 (0-0.2) K/uL Sodium 142 (136-145) mmol/L Potassium 4.1 (3.5-5.1) mmol/L Chloride 104 (98-107) mmol/L Carbon Dioxide 29 (21-32) mmol/L Anion Gap 9.0 (3-11) BUN 32 H (7-18) mg/dl Creatinine 1.47 H (0.6-1.4) mg/dl Est Cr Clr Drug Dosing 40.8 ml/min Est GFR ( Amer) 49.4 Est GFR (Non-Af Amer) 42.6 BUN/Creatinine Ratio 21.8 H (10-20) Glucose 119 H (70-99) mg/dl Calcium 10.0 (8.5-10.1) mg/dl Total Bilirubin 0.9 (0.2-1) mg/dl AST 45 H (15-37) U/L ALT 32 (12-78) U/L Alkaline Phosphatase 82 (45-117) U/L Total Protein 7.5 (6.4-8.2) gm/dl Albumin 3.4 (3.4-5.0) gm/dl Globulin 4.1 H (2.5-4.0) gm/dl Albumin/Globulin Ratio 0.8 L (0.9-2) Lipase 142 (73-393) U/L Urine Color Dark Yellow Urine Appearance Cloudy A (Clear) Urine pH 5.5 (4.5-7.5) Ur Specific [place] 1.021 (1.000-1.030) Urine Protein Negative (Negative) Urine Glucose (UA) Negative (Negative) Urine Ketones Trace H (Negative) Urine Blood Negative (Negative) Urine Nitrite Negative (Negative) Urine Bilirubin Negative (Negative) Urine Urobilinogen Negative (Negative) Ur Leukocyte Esterase Negative (Negative) Urine WBC (Auto) 1-5 (0-5) /hpf Urine RBC (Auto) 0-4 (0-4) /hpf U Hyaline Cast (Auto) 1-5 (0-5) /lpf U Epithel Cells (Auto) >30 H (0-5) /lpf Urine Bacteria (Auto) Negative (Negative) Imaging Data Radiologist's Impression: Radiology results as stated below per my review and the radiologist's interpretation: US gallbladder HISTORY: Pain. Nausea. upper pain eval for cholecystitis COMPARISON: 11/25/2014 FINDINGS: Nonvisualization of the gallbladder due to overlying bowel. Both ductal system not seen. Pancreas is unremarkable. No evidence for renal hydronephrosis. Trace free fluid. Chronic region. IMPRESSION: 1. Limited study due to overlying bowel content. 2. Nonvisualization of the gallbladder and biliary ductal system. 3. Trace perihepatic fluid. The above report was generated using voice recognition software. It may contain grammatical, syntax or spelling errors. Electronically signed by: Bulmaro Chi M.D. 02/04/2019 10:[address] ABDOMEN & PELVIS Without Contrast: Multiple loops of dilated small bowel in the lower abdomen/pelvis with a transition point in the right lower quadrant (series 2 image 70) is concerning for acute small bowel obstruction. There is a small amount of fat stranding and fluid surrounding the bowel loops. No free air. The stomach is distended. Cholelithiasis without evidence of cholecystitis. The common bile duct is dilated measuring up to 14 mm. Mild to moderate intrahepatic biliary dilatation. No definite CT evidence of choledocholithiasis. Recommend correlation with liver function tests and consider MRCP if clinically indicated. Scattered water density cysts in the liver are likely benign. Scattered large water density exophytic cysts in both kidneys are likely benign. No hydronephrosis or nephrolithiasis. 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 Multiple coarsely calcified masses in the pelvis appear grossly unchanged from previous study and possibly represent fibroids Unusual soft tissue density measuring 3.7 x 3.4 cm located posterior to the sacrum associated with a skin defect could represent chronic changes from sacral decubitus ulcer and soft tissue infection. No fluid collection is seen to suggest abscess. Recommend clinical evaluation. Severe atherosclerosis. 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 Radiologist: Adi Blue MD ECG Data Attestation: I personally reviewed and interpreted this ECG as follows: Indication: abdominal pain Rate (beats per minute): 75 Rhythm: sinus rhythm Findings: + LBBB; no PVC Comparison ECG Date: from (10/01/2016) Change: no significant change Blood Pressure Blood Pressure Findings: Elevated blood pressure MDM Narrative I did evaluate the patient as noted above. He is presenting with upper abdominal pain with vomiting. He is tender in the epigastric region and right upper quadrant but does not have a Verduzco sign. IV access was established. The patient was placed on a continuous night monitor. I did treat him with IV morphine and Zofran. I did order and personally review the patient's 12-lead EKG as described above. 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 I did order a urine analysis. There is no evidence of infection. I did order and review the patient's blood work as noted in the electronic medical record. His white count is not elevated. LFTs are unremarkable. I did order an ultrasound of the gallbladder but there was too much overlying bowel and the gallbladder was not visualized. I did order a CT of the abdomen and pelvis. I did review the images myself as well as the radiology report as described above. He does have a small bowel obstruction. I did discuss the test results with the patient. He was gi hilary an additional morphine IV. I did order an NG tube. I did discuss case with the hospitalist and onsite case manager. Impression & Plan Small bowel obstruction, Anticoagulated on Coumadin Discharge Plan Visit Data Chief Complaint: Abdominal Pain Stated Complaint: Abdominal Pain ED Provider: Ayush Rice Discharge Problem: Small bowel obstruction, Anticoagulated on Coumadin Patient Disposition: Being Evaluated by Hospitalist Forms Stand Alone Forms: My [facility] Prescriptions Prescriptions: No Action ZAFIRLUKAST (ACCOLATE) 20 MG tablet 20 mg PO DAILY Qty: 0 RF: 0 ATORVASTATIN (LIPITOR) 40 MG tablet 20 mg PO DAILY Qty: 0 RF: 0 Indapamide (Lozol) 1.25 MG tablet 1.25 mg PO DAILY Qty: 0 RF: 0 Budesonide/Formoterol Fumarate (Symbicort 160/4.5 Inhaler ) aerosol 2 puff Inhalation BID Qty: 0 RF: 0 POTASSIUM CHLORIDE (POTASSIUM CHLORIDE ER) 10 MEQ capsule 10 meq PO DAILY Qty: 0 RF: 0 Acetaminophen (Tylenol) 500 MG tablet 500 - 1,000 mg PO Q6 PRN (Reason: Pain or Fever) Qty: 0 RF: 0 GUAIFENESIN EXT REL (MUCINEX EXT REL) 600 MG tablet 600 mg PO Q12 Qty: 0 RF: 0 METOPROLOL TARTRATE (LOPRESSOR) 50 MG tablet 75 mg PO BID Qty: 0 RF: 0 Pantoprazole (Pantoprazole Sodium) 40 MG tablet 40 mg PO BID Qty: 60 RF: 5 WARFARIN SODIUM (COUMADIN) 1 MG tablet 1 tab PO DAILY 30 Days Qty: 30 RF: 5 TIOTROPIUM BROMIDE (Spiriva Handihaler) 30 PUFF/540 MCG AEROSOL,POWDR 1 cap Inhalation DAILY Qty: 0 RF: 0 Triamcinolone Acetonide (Nasal (Nasacort Allergy 24Hr) 55 MCG/ACT SPR 1 spray BIMAL DAILY Qty: 0 RF: 0 Referrals Referrals: Richar Horton MD [Primary Care Provider] - The scribe's documentation has been prepared under my direction and personally reviewed by me in its entirety. I confirm that the note above accurately reflects all work, treatment, procedures, and medical decision making performed by me.
[2019-02-05 00:47] LABS: INR 2.4 (0.9-1.1); Partial Thromboplastin Ratio 1.2; Partial Thromboplastin Time 32.9 Seconds (21.0-31.0); Prothrombin Time 22.7 Seconds (9.0-12.0)
[2019-02-05] MEDS ORDERED: ONDANSETRON INJ 2 MG/ML 2 ML VIAL IV PRN (02:09)
[2019-02-05] MEDS ORDERED: PIPERACILLIN/TAZOBACTAM 3.375 GM in DEXTROSE 5% 100 ML IV SCH (02:09)
[2019-02-05] MEDS ORDERED: PIPERACILL/TAZOBAC CONSULT ACTIVE PRN (02:09)
[2019-02-05] MEDS ORDERED: PIPERACILLIN/TAZOBACTAM 3.375 GM in DEXTROSE 5% 100 ML IV ONE (02:30)
[2019-02-05] MEDS: SODIUM CHLORIDE 0.9% 1000ML 1,000 ML IV SCH ×2 (02:32→13:10)
[2019-02-05] MEDS ORDERED: Heparin IV Low Dose *NO* Bolus IV SCH (03:49)
[2019-02-05] MEDS ORDERED: MoRPHine SULFATE 2 MG/ML CARP IV PRN (04:13)
[2019-02-05] MEDS ORDERED: Heparin Adult LOW DOSE Wt-Based Dextrose 5% 25,000 units/500 mL IV SCH (04:15)
--- NOTE | 2019-02-05 04:15 | History & Physical Report ---
Date of Service February 05, 2019 Assessment & Plan (1) Small bowel obstruction: Small bowel obstruction with transition point in right lower quadrant- NPO NSS at 80 mils per hour. Zosyn 3.375 mg IV every 8 hours. We will hold on NG tube at this time, since patient is feeling better and would prefer to not have it. He does report having a large bowel movement earlier in the day of admission. Acetaminophen 1 g IV every 8 hours PRN mild pain or temperature. Morphine sulfate 2 mg IV every 4 hours as needed severe pain. Famotidine 20 mg IV every 12 hours Consult general surgery. Present on Admission?: Yes (2) Anticoagulated on Coumadin: Chronic anticoagulation for atrial fibrillation/AVR/PE- Hold warfarin. Placed on heparin IV low-dose no bolus. Present on Admission?: Yes (3) Pulmonary embolism: As above. Present on Admission?: Yes (4) Duodenal ulcer: History of GI bleed secondary to duodenal ulcer requiring 4 units PRBCs during admission of 10/26. Present on Admission?: Yes (5) GI bleed: As noted above. Present on Admission?: Yes (6) History of aortic valve replacement with bioprosthetic valve: As noted. Present on Admission?: Yes (7) Paroxysmal atrial fibrillation: As noted above. Present on Admission?: Yes (8) Decubitus ulcer of sacral region, stage 1: Consult wound care Present on Admission?: Yes History of Present Illness Chief Complaint: The patient presents to the emergency department with the acute onset of generalized abdominal discomfort, nausea, and vomiting that began around 1230 this afternoon. Primary Care Provider: Richar Horton MD The patient is a 88-year-old male with past medical history including GI bleed, hemorrhagic shock, pulmonary embolism, chronic anticoagulation on Coumadin, AVR, PE who presents to the emergency department with acute onset of severe abdominal discomfort accounted by nausea and vomiting that began early in the afternoon around 12:30 PM. He does report, upon recollection, that his bowel movements have been variable over the past few months, where he will have a normal full bowel movement, and other times less, and this is been unusual for him. He has not had any blood in stool. He has been on a different diet over the past several months, and has had a 70 pound intentional weight loss. Work-up in the emergency department included a CT scan of abdomen and pelvis, which suggested a transition point in the right lower quadrant, and acute small bowel obstruction. Allergies Allergy/AdvReac Type Severity Reaction Status Date / Time No Known Allergies Allergy Unknown Verified 02/05/19 01:44 Home Medications Home Medications Medication Instructions Recorded Confirmed Type atorvastatin 20 mg PO DAILY 02/05/19 02/05/19 History indapamide 1.25 mg PO DAILY 02/05/19 02/05/19 History metoprolol tartrate 50 mg PO BID 02/05/19 02/05/19 History pantoprazole 40 mg PO DAILY 02/05/19 02/05/19 History warfarin 2.5 mg PO DAILY 02/05/19 02/05/19 History Past Med/Surg History Medical History Asthma (Chronic) Heart valve disorder (Chronic) Cancer Abdominal tumor requiring surgical resection, chemo, and radiation. Deep vein thrombosis Hyperlipidemia Hypertension Surgical History History of heart valve replacement Social History Preferred Language: Telugu Communication Ability: Effective Orthotic Practitioner Required: No Beliefs That Will Affect Care: None Current Living Situation: Spouse Other Information That Helps Us Care for You: No Feels Safe at Home: Yes Safety Concerns: Feels Safe At This Time Smoking Status: Never smoker Hx Alcohol Use: No Hx Substance Use: No Review of Systems Review of Systems: The patient denies chest pain, palpitations, shortness of breath, dyspnea on exertion, cough, lower extremity swelling, sore throat, fevers, chills, sweats, Blood in urine or stool, dysuria, urinary frequency or urgency, lightheadedness, dizziness, headache, memory loss, loss of consciousness, rash, abnormal bruising or bleeding,imbala nce, focal or generalized weakness, numbness or tingling in arms or legs, generalized arthralgias or myalgias, back or neck pain, or night sweats. The review of systems is otherwise negative other than for that already noted above, and at least 10 systems have been reviewed. Physical Exam Physical Exam: The patient is awake, alert and oriented �3, well developed and well nourished, normocephalic and atraumatic, lying in bed and in no acute distress. HEENT--PERRL, EOMI, mucous membranes and oropharynx dry. Neck--supple. No JVD. No bruits. Thyroid normal, trachea midline, no adenopathy. Heart--normal S1 and S2. No murmurs, rubs or gallops. Lungs--clear bilaterally, no respiratory distress, no accessory muscle use. Abdomen--decreased bowel sounds and soft. Nontender post pain medication. Nondistended. Extremities--no cyanosis or clubbing. No edema. There are good distal pulses b/l. Dermatologic--normal skin turgor, normal color, no abnormal lymph nodes, no rash. Neurologic--cranial nerves II through XII grossly intact. Rheumatologic--normal range of motion. Psychiatric--normal affect. Results & Data Vital Signs (Past 12 Hours) Vital Signs Temp Pulse Pulse Resp BP BP Pulse Ox 02/05/19 01:54 72 17 153/81 H 97 02/05/19 01:50 98.1 F 97 H 16 144/79 H 96 02/05/19 01:00 81 18 148/81 H 96 02/04/19 23:40 18 97 02/04/19 23:26 77 18 165/83 H 97 02/04/19 22:49 93 02/04/19 22:47 73 24 165/90 H 88 L 02/04/19 22:40 66 18 95 02/04/19 22:30 66 17 177/110 H 97 02/04/19 22:24 76 22 97 02/04/19 21:30 72 20 96 02/04/19 21:20 70 15 97 02/04/19 21:11 73 19 157/82 H 98 02/04/19 21:10 65 19 97 02/04/19 21:05 98 02/04/19 21:00 70 27 H 91 02/04/19 20:52 73 32 H 93 02/04/19 20:26 98.1 F 72 18 169/84 H 93 02/04/19 20:24 75 19 169/84 H 95 Laboratory Results Laboratory Results WBC 6.83 K/uL (4.8-10.8) 02/04/19 20:33 RBC 4.64 M/uL (4.7-6.1) L 02/04/19 20:33 Hgb 13.9 g/dL (14.0-18.0) L 02/04/19 20:33 Hct 41.7 % (42-52) L 02/04/19 20:33 MCV 89.9 fL (80-100) 02/04/19 20: MCH 30.0 pg (25-34) 02/04/19 20: MCHC 33.3 g/dL (32-36) 02/04/19 20: RDW Std Deviation 47.0 fL (36.4-46.3) H 02/04/19 20: RDW Coeff of June 14.3 % (11.5-14.5) 02/04/19 20: Plt Count 159 K/uL (130-400) 02/04/19 20: MPV 10.2 fL (7.4-10.4) 02/04/19 20: Immature Gran % (Auto) 0.1 % 02/04/19 20: Neut % (Auto) 84.4 % 02/04/19 20: Lymph % (Auto) 8.2 % 02/04/19 20: [place] % (Auto) 6.7 % 02/04/19 20: Eos % (Auto) 0.3 % 02/04/19 20: Baso % (Auto) 0.3 % 02/04/19 20: Immature Gran # (Auto) 0.01 K/uL (0.00-0.02) 02/04/19 20: Neut # (Auto) 5.76 K/uL (1.4-6.5) 02/04/19 20: Lymph # (Auto) 0.56 K/uL (1.2-3.4) L 02/04/19 20: [place] # (Auto) 0.46 K/uL (0.11-0.59) 02/04/19 20: Eos # (Auto) 0.02 K/uL (0-0.5) 02/04/19 20: Baso # (Auto) 0.02 K/uL (0-0.2) 02/04/19 20: PT 22.7 Seconds (9.0-12.0) H 02/04/19 20:33 INR 2.4 (0.9-1.1) H 02/04/19 20: APTT 32.9 Seconds (21.0-31.0) H 02/04/19 20:33 PTT Ratio 1.2 02/04/19 20:33 Sodium 142 mmol/L (136-145) 02/04/19 20:33 Potassium 4.1 mmol/L (3.5-5.1) 02/04/19 20:33 Chloride 104 mmol/L (98-107) 02/04/19 20:33 Carbon Dioxide 29 mmol/L (21-32) 02/04/19 20:33 9.0 (3-11) 02/04/19 20:33 BUN 32 mg/dl (7-18) H 02/04/19 20:33 1.47 mg/dl (0.6-1.4) H 02/04/19 20:33 Est Cr Clr Drug Dosing 40.8 ml/min 02/04/19 20:33 Est GFR ( Amer) 49.4 02/04/19 20:33 Est GFR (Non-Af Amer) 42.6 02/04/19 20:33 21.8 (10-20) H 02/04/19 20:33 Glucose 119 mg/dl (70-99) H 02/04/19 20:33 Calcium 10.0 mg/dl (8.5-10.1) 02/04/19 20:33 0.9 mg/dl (0.2-1) 02/04/19 20:33 AST 45 U/L (15-37) H 02/04/19 20:33 ALT 32 U/L (12-78) 02/04/19 20:33 82 U/L (45-117) 02/04/19 20:33 7.5 gm/dl (6.4-8.2) 02/04/19 20:33 3.4 gm/dl (3.4-5.0) 02/04/19 20:33 4.1 gm/dl (2.5-4.0) H 02/04/19 20:33 0.8 (0.9-2) L 02/04/19 20:33 142 U/L (73-393) 02/04/19 20:33 Dark Yellow 02/04/19 23:35 Cloudy (Clear) A 02/04/19 23:35 5.5 (4.5-7.5) 02/04/19 23:35 Ur Specific [place] 1.021 (1.000-1.030) 02/04/19 23:35 Negative (Negative) 02/04/19 23:35 Negative (Negative) 02/04/19 23:35 Trace (Negative) H 02/04/19 23:35 Negative (Negative) 02/04/19 23:35 Negative (Negative) 02/04/19 23:35 Negative (Negative) 02/04/19 23:35 Negative (Negative) 02/04/19 23:35 Ur Leukocyte Esterase Negative (Negative) 02/04/19 23:35 1-5 /hpf (0-5) 02/04/19 23:35 0-4 /hpf (0-4) 02/04/19 23:35 U Hyaline Cast (Auto) 1-5 /lpf (0-5) 02/04/19 23:35 U Epithel Cells (Auto) >30 /lpf (0-5) H 02/04/19 23:35 Negative (Negative) 02/04/19 23:35 Code Status & VTE Plan Code Status Full code VTE Prophylaxis Plan VTE Prophylaxis will be ordered: Yes
[2019-02-05] MEDS: METOPROLOL TARTRATE 1 MG/ML VIAL IV SCH ×5 (04:18→20:54)
[2019-02-05] MEDS: FAMOTIDINE 20 MG in SYRINGE 3 ML IV SCH ×2 (04:27→15:43)
[2019-02-05] MEDS: ACETAMINOPHEN 1000 MG/100 ML IV IV PRN ×2 (04:52→12:36)
[2019-02-05 06:37] LABS: Basophils # (auto) 0.02 K/uL (0-0.2); Basophils % (auto) 0.3 %; Eosinophils # (auto) 0.01 K/uL (0-0.5); Eosinophils % (auto) 0.2 %; Hematocrit (blood only) 37.3 % (42-52); Hemoglobin 12.6 g/dL (14.0-18.0); Immature Granulocytes # (auto) 0.01 K/uL (0.00-0.02); Immature Granulocytes % (auto) 0.2 %; Lymphocytes # (auto) 0.36 K/uL (1.2-3.4); Mean Corpuscular Hgb Conc 33.8 g/dL (32-36); Mean Corpuscular Volume 88.6 fL (80-100); Monocytes # (auto) 0.63 K/uL (0.11-0.59); Monocytes % (auto) 10.4 %; Neutrophils # (auto) 5.01 K/uL (1.4-6.5); Neutrophils % (auto) 82.9 %; Platelet Count 146 K/uL (130-400); RDW Coefficient of Variation 14.2 % (11.5-14.5); RDW Standard Deviation 46.3 fL (36.4-46.3); Red Blood Count 4.21 M/uL (4.7-6.1); White Blood Count 6.04 K/uL (4.8-10.8)
[2019-02-05 06:46] LABS: INR 2.4 (0.9-1.1); Partial Thromboplastin Ratio 1.6; Partial Thromboplastin Time 44.3 Seconds (21.0-31.0); Prothrombin Time 23.3 Seconds (9.0-12.0)
[2019-02-05 07:06] LABS: Albumin Level 2.7 gm/dl (3.4-5.0); BUN Creatinine Ratio 21.7 (10-20); Calcium 9.1 mg/dl (8.5-10.1); Creatinine Clr Calc Pharmacy 42.5 ml/min; Est GFR (African American) 51.9; Est GFR (Non-African American) 44.8; Potassium 3.8 mmol/L (3.5-5.1)
[2019-02-05 07:13] LABS: Albumin Globulin Ratio 0.8 (0.9-2); Bilirubin,Total 0.9 mg/dl (0.2-1); Globulin 3.5 gm/dl (2.5-4.0); Total Protein 6.2 gm/dl (6.4-8.2)
--- NOTE | 2019-02-05 07:47 | CT Scan Report ---
CT SCAN OF THE ABDOMEN AND PELVIS WITHOUT IV CONTRAST CLINICAL HISTORY: Right upper quadrant abdominal pain. COMPARISON STUDY: Abdominal CT dated 11/30/2012. TECHNIQUE: CT scan of the abdomen and pelvis is performed from the lung bases to the proximal femora. Images are reviewed in the axial, sagittal, and coronal planes. IV contrast was not administered for this examination as per the referring clinician. Note that the examination was performed in suboptim al fashion without IV contrast. A dose lowering technique was utilized adhering to the principles of ALARA. CT DOSE: 1083.06 mGy.cm FINDINGS: Lung bases: The patient is status post midline sternotomy and cardiac valve surgery. The heart is mil dly enlarged and without pericardial effusion. The coronary arteries are densely calcified. There are trace pleural effusions end bibasilar scarring/atelectasis. Liver: The unenhanced liver is normal in size, contour, and attenuation. There is mild to moderate in trahepatic biliary ductal dilatation. There is also dilatation of the common bile duct. Scattered hep atic cysts measure up to 1.9 cm. Gallbladder: There are numerous calcified gallstones, with no CT evidence of acute cholecystitis. Spleen: Normal in size and attenuation. Pancreas: The unenhanced pancreas is moderately atrophic and grossly unremarkable. Adrenal glands: Unremarkable. Kidneys: The unenhanced kidneys are atrophic and without hydronephrosis. There are no renal calculi i dentified. There are numerous bilateral renal cysts which measure up to 8 cm. Subcentimeter complex/h yperdense cysts are also noted. Abdominal vasculature: The abdominal aorta is normal in course and caliber noting moderate to advance d atherosclerotic calcification. An IVC filter is in place. Bowel: There are mildly thick-walled, distended, and fluid-filled loops of small bowel identified in the right lower quadrant and pelvis. These measure up to 3.4 cm in diameter. Findings are consistent with a small bowel obstruction. A transition point is identified in the ventral upper abdomen on imag e #204. A second transition point may be located in the pelvis. This is difficult to assess. There is no pneumatosis intestinalis or portal venous gas. The appendix is well-visualized and normal. Fecal retention is noted in the colon. Peritoneum: There is a small volume of perihepatic and perisplenic ascites. Trace ascites is also see n in the pelvis. No intraperitoneal free air is identified. Lymphadenopathy: None. Pelvic viscera: Evaluation of the pelvis is severely degraded by streak artifact from bilateral hip a rthroplasties. The bladder is grossly unremarkable but not well evaluated. The prostate gland cannot be assessed. The seminal vesicles are densely calcified. Skeletal structures: The skeletal structures are heterogeneously osteopenic. There is moderate to adv anced lumbosacral spondylosis. No lytic or blastic lesions are clearly seen. Bilateral hip arthroplas ties are in place. IMPRESSION: 1. Significantly suboptimal examination without oral and IV contrast. 2. Findings are consistent with a high-grade small bowel obstruction. There is at least one transitio n point identified, with a questionable second transition point in the pelvis. A closed loop type obs truction is not excluded and clinical correlation will be essential. 3. There is mild wall thickening involving the affected small bowel loops, with surrounding inflammat ion and interloop fluid. There is no pneumatosis intestinalis, portal venous gas, or intraperitoneal free air. 4. Trace abdominopelvic ascites. 5. Cholelithiasis without CT evidence of acute cholecystitis. 6. There is intra and extrahepatic biliary ductal dilatation of indeterminate etiology. Correlation w ith LFTs will be required. Nonemergent GI follow-up is recommended. 7. Cardiomegaly and trace pleural effusions. 8. Additional findings as above. Electronically signed by: Navjot Stacy M.D. 02/05/2019 7:46 AM
[2019-02-05] MEDS: PIPERACILLIN/TAZOBACTAM 3.375 GM in DEXTROSE 5% 100 ML IV SCH ×2 (07:56→15:43)
[2019-02-05] MEDS: BUDESONIDE/FORMOTEROL FUMARATE 160/4.5 60 PUFFS/INHALER INH SCH ×2 (07:57→20:55)
[2019-02-05] MEDS: TIOTROPIUM BROMIDE 5 PUFF/90 MCG INH INH SCH (07:57)
--- NOTE | 2019-02-05 11:28 | Surgery Consultation ---
Date of Consultation February 05, 2019 Assessment & Plan (1) Small bowel obstruction: 88 [address] male with CT scan findings that are consistent with a high- grade small bowel obstruction- transition point, with a questionable second transition point in the pelvis. A closed loop type obstruction is not excluded. There is mild wall thickening involving the affected small bowel loops, with surrounding inflammation and interloop fluid. There is no pneumatosis intestinalis, portal venous gas, or intraperitoneal free air. Gallbladder was also visualized- there are numerous calcified gallstones, with no CT evidence of acute cholecystitis. Patient's nausea has resolved- did not require NG tube placement. Abdominal pain has improved- now a 2-3/10 on pain scale. Last pain med- IV tylenol was roughly 5AM. Anticoagulation per primary team. Patient remains NPO. At this time, patient's abdominal pain and nausea are improving with conservative measures. Vital signs stable. No emergent surgical intervention indicated. Will discuss with Dr. Le. General Surgery will continue to follow closely. as above. mild /crampy lower abdominal pain. no nausea. improved since admission. non-distended with minimal tenderness. keep npo. hold anticoagulation. repeat KUB tomorrow AM. will follow closely. in vomitting recurs would place NGT History of Present Illness Reason for Consultation: Small Bowel Obstruction with transition point in right lower quadrant Attending Physician: Julio Peacock DO History of Present Illness Mr. 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 Patient has, for the last year, followed a low carb, intermittent fasting diet and has lost roughly 70lbs. Pt states that yesterday morning he completed his usual 2 hr workout in gym and then returned home to have lunch (a banana)- pt states that after lunch he developed sudden generalized abdominal pain. He reports that he attempted to drink some otilia yuliya to settle his stomach, but that it did not help. The abdominal pain became worse and he had roughly 3-4 episodes of vomiting between 2PM and 7PM. Pt denies ever having this type of pain before. He denies history of postprandial pain. He and his determined that they should come to ED for evaluation. Patient reports that he vomited an additional 3 times in ED. He does admit to a history of constipation- states that he can go for days without a "good bowel movement." Will very rarely have issues with fecal incontinence. His last colonoscopy was 5-6 years ago. He was told that he does not need anymore colonoscopies. No history of previous bowel obstructions. Last BM was yesterday AM. Labwork in ED: WBC 6.83; Hgb 13.9; Hct 41.7 Tot Bili 0.9 AST 45 ALT 32 Alk Phos 82 Currently, patient states that his last does of pain medication (IV tylenol) was early this AM (around 5AM) and that he has not had anything since. His abdominal pain is a 2-3/10. He does not feel bloated. His nausea has resolved. He states that he feels better than when he first came in last night. Allergies Allergy/AdvReac Type Severity Reaction Status Date / Time No Known Allergies Allergy Unknown Verified 02/05/19 01:44 Home Medications Home Medications Medication Instructions Recorded Confirmed Type atorvastatin 20 mg PO DAILY 02/05/19 02/05/19 History indapamide 1.25 mg PO DAILY 02/05/19 02/05/19 History metoprolol tartrate 50 mg PO BID 02/05/19 02/05/19 History pantoprazole 40 mg PO DAILY 02/05/19 02/05/19 History warfarin 2.5 mg PO DAILY 02/05/19 02/05/19 History Patient History Medical History Asthma (Chronic) Heart valve disorder (Chronic) Cancer Abdominal tumor requiring surgical resection, chemo, and radiation. Deep vein thrombosis Hyperlipidemia Hypertension Surgical History History of heart valve replacement Social History Preferred Language: Slovenian Communication Ability: Effective Director Process Required: No Beliefs That Will Affect Care: None Current Living Situation: Spouse Other Information That Helps Us Care for You: No Feels Safe at Home: Yes Safety Concerns: Feels Safe At This Time Smoking Status: Never smoker Hx Alcohol Use: No Hx Substance Use: No Physical Exam Gastrointestinal (Abdomen): Inspection/Auscultation: abdomen not distended Percussion/Palpation: abdomen soft; abdomen nontender, no guarding and abdomen not rigid excess skin from weight loss. Results & Data Vital Signs (Past 12 Hours) Vital Signs Temp Pulse Pulse Resp BP BP Pulse Ox 02/05/19 08:00 68 02/05/19 06:53 36.7 C 68 16 115/60 97 02/05/19 04:18 143/70 H 02/05/19 04:00 37.1 C 77 20 143/70 H 99 02/05/19 01:54 72 17 153/81 H 97 02/05/19 01:50 36.7 C 97 H 16 144/79 H 96 02/05/19 01:00 81 18 148/81 H 96 02/04/19 23:40 18 97
--- NOTE | 2019-02-05 13:43 | History & Physical Bridge Note ---
Date of Service February 05, 2019 History & Physical Bridge Note I have examined the patient, reviewed the History & Physical and in the interval since the performance of the History & Physical I have noted the following changes of clinical significance patient doing well, no nausea or vomiting abdominal pain is now mild no flatus, no BM since admission, he is ambulating when he can appreciate general surgery note INR 2.4, stop heparin drip for now and continue to hold Coumadin, has history of GI bleed so would want to avoid too much anticoagulation continue NPO for now, conservative measures, look for bowel function to return abdomen is mildly distended, non tender, hypoactive bowel sounds on exam
[2019-02-06] MEDS: METOPROLOL TARTRATE 1 MG/ML VIAL IV SCH ×4 (00:29→12:57)
[2019-02-06] MEDS: PIPERACILLIN/TAZOBACTAM 3.375 GM in DEXTROSE 5% 100 ML IV SCH ×2 (00:29→09:12)
[2019-02-06] MEDS: SODIUM CHLORIDE 0.9% 1000ML 1,000 ML IV SCH (02:25)
[2019-02-06] MEDS: FAMOTIDINE 20 MG in SYRINGE 3 ML IV SCH ×2 (04:28→16:53)
[2019-02-06 06:35] LABS: Basophils # (auto) 0.03 K/uL (0-0.2); Basophils % (auto) 0.6 %; Eosinophils # (auto) 0.05 K/uL (0-0.5); Hematocrit (blood only) 38.2 % (42-52); Hemoglobin 12.6 g/dL (14.0-18.0); Lymphocytes # (auto) 0.72 K/uL (1.2-3.4); Mean Corpuscular Volume 89.9 fL (80-100); Monocytes # (auto) 0.54 K/uL (0.11-0.59); Monocytes % (auto) 11.2 %; Neutrophils # (auto) 3.47 K/uL (1.4-6.5); Neutrophils % (auto) 72.2 %; Platelet Count 140 K/uL (130-400); RDW Coefficient of Variation 14.4 % (11.5-14.5); RDW Standard Deviation 47.9 fL (36.4-46.3); Red Blood Count 4.25 M/uL (4.7-6.1); White Blood Count 4.81 K/uL (4.8-10.8)
[2019-02-06 06:43] LABS: INR 2.6 (0.9-1.1); Prothrombin Time 24.5 Seconds (9.0-12.0)
[2019-02-06 07:08] LABS: Albumin Level 2.8 gm/dl (3.4-5.0); BUN Creatinine Ratio 18.2 (10-20); Calcium 8.8 mg/dl (8.5-10.1); Creatinine Clr Calc Pharmacy 43.4 ml/min; Est GFR (African American) 53.3; Potassium 3.9 mmol/L (3.5-5.1)
[2019-02-06 07:10] LABS: Albumin Globulin Ratio 0.8 (0.9-2); Bilirubin,Total 1.1 mg/dl (0.2-1); Globulin 3.7 gm/dl (2.5-4.0); Total Protein 6.5 gm/dl (6.4-8.2)
--- NOTE | 2019-02-06 08:30 | XRay Report ---
XR KUB/Abdomen 1 view CLINICAL HISTORY: bowel obstruction COMPARISON STUDY: CT 02/04/2018 FINDINGS: Improved bowel pattern. Mild residual small bowel ileus. No evidence for true obstructive c hange. Calcified uterine fibroid. Considerable degenerative change lumbar spine. Bilateral hip arthroplastie s. Inferior vena caval filter is present. IMPRESSION: Improved bowel pattern with no evidence for current obstructive change. Mild to moderate reactive small bowel ileus. The above report was generated using voice recognition software. It may contain grammatical, syntax or spelling errors. Electronically signed by: Bulmaro Chi M.D. 02/06/2019 8:29 AM
--- NOTE | 2019-02-06 09:52 | Hospitalist Progress Note ---
Date of Service February 06, 2019 Assessment & Plan (1) Small bowel obstruction: Small bowel obstruction with transition point in right lower quadrant- keep NPO stop IV fluids and Zosyn today less pain, no vomiting KUB with normal bowel gas pattern will try clears, look for flatus and BM general surgery following patient will ambulate in halls transfer to medical floor today, stable on monitor (2) Anticoagulated on Coumadin: Chronic anticoagulation for atrial fibrillation/AVR/PE- INR elevated at 2.6 will continue to hold in case he would require surgery (3) Pulmonary embolism: history of pulmonary embolism on Coumadin chronically Present on Admission?: No (4) Duodenal ulcer: History of GI bleed secondary to duodenal ulcer requiring 4 units PRBCs during admission of 10/26. no current melena (5) GI bleed: history of GI bleed, no evidence of bleeding currently Present on Admission?: No (6) History of aortic valve replacement with bioprosthetic valve: As noted. (7) Paroxysmal atrial fibrillation: As noted above. (8) Decubitus ulcer of sacral region, stage 1: Consult wound care (9) Chronic kidney disease, stage III (moderate): Cr is stable, continue to follow UO Subjective no pain today, no nausea or vomiting overall he is feeling a lot better stopped IV fluids, encouraged him to ambulate in the halls discussed with general surgery, try some clears today KUB today reviewed by me, has no signs of dilated bowels, just a normal pattern reviewed labs, INR 2.6 BMP normal with normal electrolytes Review of Systems Review of Systems: All systems reviewed & are unremarkable except as noted in HPI & below Constitutional: no fever, no chills and no sweats Respiratory: no cough and no dyspnea Cardiovascular: no chest pain Gastrointestinal: + constipation; no abdominal pain, no nausea, no vomiting and no diarrhea/loose stools Physical Exam Constitutional: WD/WN, vitals as above Eyes: PERRL, conjunctivae normal, anicteric sclerae ENMT: external ear and nose normal, oropharynx normal Neck: trachea midline, no thyromegaly Respiratory: normal respiratory effort, lungs clear to auscultation Cardiovascular: RRR, no murmur, no edema Gastrointestinal (Abdomen): Inspection/Auscultation: abdomen normal to inspection; abdomen not distended and + abnormal bowel sounds (hypoactive) Percussion/Palpation: abdomen soft; abdomen nontender and no guarding Musculoskeletal: no cyanosis or clubbing, extremities motor strength 5/5 Skin: no rashes, warm and dry Neurologic: patellar DTR's 2+ bilat, sensation intact and PERRL, EOMI, accommodation nl, no face palsy, no dysarthria Psychiatric: A+Ox3, euthymic affect Lymphatic: no cervical or axillary lymphadenopathy Results & Data Vital Signs (Past 12 Hours) Vital Signs Temp Pulse Pulse Resp BP BP BP 02/06/19 08:47 61 102/56 L 02/06/19 07:35 36.8 C 61 18 102/56 L 02/06/19 04:01 110/60 02/06/19 03:34 36.9 C 73 16 110/60 02/06/19 00:01 36.8 C 70 16 137/71 Pulse Ox 02/06/19 08:47 02/06/19 07:35 94 02/06/19 04:01 02/06/19 03:34 92 02/06/19 00:01 94 Laboratory Results Laboratory Results - last 24 hr 02/06/19 02/06/19 02/06/19 06:13 06:13 06:13 WBC 4.81 RBC 4.25 L Hgb 12.6 L Hct 38.2 L MCV 89.9 MCH 29.6 MCHC 33.0 RDW Std Deviation 47.9 H RDW Coeff of June 14.4 Plt Count 140 MPV 10.0 Immature Gran % (Auto) 0.0 Neut % (Auto) 72.2 Lymph % (Auto) 15.0 [place] % (Auto) 11.2 Eos % (Auto) 1.0 Baso % (Auto) 0.6 Immature Gran # (Auto) 0.00 Neut # (Auto) 3.47 Lymph # (Auto) 0.72 L [place] # (Auto) 0.54 Eos # (Auto) 0.05 Baso # (Auto) 0.03 PT 24.5 H INR 2.6 H Sodium 141 Potassium 3.9 Chloride 108 H Carbon Dioxide 28 Anion Gap 5.0 BUN 25 H Creatinine 1.38 Est Cr Clr Drug Dosing 43.4 Est GFR ( Amer) 53.3 Est GFR (Non-Af Amer) 46.0 BUN/Creatinine Ratio 18.2 Glucose 87 Calcium 8.8 Total Bilirubin 1.1 H AST 47 H ALT 37 Alkaline Phosphatase 81 Total Protein 6.5 Albumin 2.8 L Globulin 3.7 Albumin/Globulin Ratio 0.8 L Medications Administered Current Inpatient Medications Acetaminophen (Ofirmev) 1,000 mg IV Q8H PRN PRN Reason: Pain or Fever Stop: 03/07/19 02:08 Last Admin: 02/05/19 12:36 Dose: 1,000 mg Documented by: Budesonide/Formoterol Fumarate (Symbicort 160mcg/4.5mcg) 2 puffs INH BID [facility] Stop: 03/07/19 08:59 Last Admin: 02/05/19 20:55 Dose: Not Given Documented by: Sodium Chloride (Nss 1000ml) 1,000 mls @ 80 mls/hr IV .[id number] [facility] Stop: 03/07/19 02:08 Last Admin: 02/06/19 02:25 Dose: 80 mls/hr Documented by: Piperacillin Sod/Tazobactam (Sod 3.375 gm/ Dextrose) 115 mls @ 28.75 mls/hr IV Q8H [facility]; Protocol Stop: 02/15/19 07:59 Last Admin: 02/06/19 09:12 Dose: 28.8 mls/hr Documented by: Heparin Sodium/Dextrose (Heparin Sodium/Dextrose) 25,000 units in 500 mls @ 0 mls/hr IV .Q0M [facility]; Protocol Stop: 03/07/19 04:14 Last Titration: 02/05/19 09:28 Dose: 0 units/hr, 0 mls/hr Documented by: Famotidine 20 mg/ Syringe 5 mls @ 2.5 mls/min IV Q12@0400,1600 [facility] Stop: 03/07/19 04:14 Last Admin: 02/06/19 04:28 Dose: 2.5 mls/min Documented by: Metoprolol Tartrate (Lopressor) 5 mg IV Q4 [facility] Stop: 03/07/19 03:59 Last Admin: 02/06/19 08:47 Dose: Not Given Documented by: Miscellaneous Information (Consult) 1 ea N/A UD PRN PRN Reason: Consult Stop: 03/07/19 02:08 Morphine Sulfate (Morphine Sulfate) 2 mg IV Q4H PRN PRN Reason: Severe Pain Stop: 02/19/19 04:12 Ondansetron HCl (Zofran) 4 mg IV Q6H PRN PRN Reason: NAUSEA/VOMITING Stop: 03/07/19 02:08 Tiotropium [place] (Spiriva) 1 puffs INH DAILY [facility] Stop: 03/07/19 08:59 Last Admin: 02/05/19 07:57 Dose: Not Given Documented by:
--- NOTE | 2019-02-06 10:53 | Surgery Progress Note ---
Date of Service February 06, 2019 Assessment & Plan (1) Small bowel obstruction: Pt doing well. Abdominal pain and nausea have resolved. No pain medication needed overnight. KUB this AM shows improved bowel pattern with no evidence for current obstructive change. Mild to moderate reactive small bowel ileus. Pt remains afebrile. Feeling hungry this AM- ok to try clear liquids. Advised patient to go slow with diet and to stop if he becomes nauseous or pain returns. No indication for surgical intervention at this time, patient improving with conservative measures. pt seen. doing great. no pain. no nausea. nely liquids. KUB shows improved bowel pattern/no obstruction if does well overnight could try food tomorrow. Subjective Pt ambulating in hallway when I came to see him. He is doing very well. Abdominal pain has resolved. Nausea has resolved. Denies passing flatus and no bowel movement since admission. Is feeling hungry. Physical Exam Gastrointestinal (Abdomen): Inspection/Auscultation: abdomen not distended Percussion/Palpation: abdomen soft; abdomen nontender, no guarding and abdomen not rigid Results & Data Vital Signs (Past 12 Hours) Vital Signs Temp Pulse Pulse Resp BP BP BP 02/06/19 08:47 61 102/56 L 02/06/19 07:35 36.8 C 61 18 102/56 L 02/06/19 04:01 110/60 02/06/19 03:34 36.9 C 73 16 110/60 02/06/19 00:01 36.8 C 70 16 137/71 Pulse Ox 02/06/19 08:47 02/06/19 07:35 94 02/06/19 04:01 02/06/19 03:34 92 02/06/19 00:01 94
[2019-02-06] MEDS: TIOTROPIUM BROMIDE 5 PUFF/90 MCG INH INH SCH (11:13)
[2019-02-06] MEDS: BUDESONIDE/FORMOTEROL FUMARATE 160/4.5 60 PUFFS/INHALER INH SCH ×2 (11:13→20:14)
[2019-02-06] MEDS: METOPROLOL TARTRATE 50 MG TAB PO SCH (20:14)
[2019-02-07] MEDS: FAMOTIDINE 20 MG in SYRINGE 3 ML IV SCH (04:12)
[2019-02-07 07:16] LABS: Basophils # (auto) 0.04 K/uL (0-0.2); Basophils % (auto) 0.8 %; Eosinophils # (auto) 0.25 K/uL (0-0.5); Eosinophils % (auto) 4.8 %; Hematocrit (blood only) 39.7 % (42-52); Lymphocytes % (auto) 21.3 %; Mean Corpuscular Hgb Conc 32.7 g/dL (32-36); Mean Corpuscular Volume 89.8 fL (80-100); Mean Platelet Volume 10.1 fL (7.4-10.4); Monocytes # (auto) 0.57 K/uL (0.11-0.59); Neutrophils # (auto) 3.21 K/uL (1.4-6.5); Neutrophils % (auto) 62.1 %; Platelet Count 151 K/uL (130-400); RDW Coefficient of Variation 14.5 % (11.5-14.5); RDW Standard Deviation 47.9 fL (36.4-46.3); Red Blood Count 4.42 M/uL (4.7-6.1); White Blood Count 5.17 K/uL (4.8-10.8)
[2019-02-07 07:25] LABS: INR 2.3 (0.9-1.1)
[2019-02-07] MEDS: TIOTROPIUM BROMIDE 5 PUFF/90 MCG INH INH SCH (07:44)
[2019-02-07] MEDS: BUDESONIDE/FORMOTEROL FUMARATE 160/4.5 60 PUFFS/INHALER INH SCH (07:44)
[2019-02-07] MEDS: METOPROLOL TARTRATE 50 MG TAB PO SCH (07:45)
[2019-02-07 07:47] LABS: Calcium 9.4 mg/dl (8.5-10.1); Creatinine Clr Calc Pharmacy 45.7 ml/min; Est GFR (African American) 56.7; Magnesium 1.9 mg/dl (1.8-2.4); Potassium 3.4 mmol/L (3.5-5.1)
[2019-02-07 07:50] LABS: Albumin Globulin Ratio 0.8 (0.9-2); Bilirubin,Total 1.1 mg/dl (0.2-1); Globulin 3.6 gm/dl (2.5-4.0); Total Protein 6.6 gm/dl (6.4-8.2)
--- NOTE | 2019-02-07 12:37 | Discharge Summary ---
Date of Service February 07, 2019 Admission HPI Per Admitting Provider The patient is a 88-year-old male with past medical history including GI bleed, hemorrhagic shock, pulmonary embolism, chronic anticoagulation on Coumadin, AVR, PE who presents to the emergency department with acute onset of severe abdominal discomfort accounted by nausea and vomiting that began early in the afternoon around 12:30 PM. He does report, upon recollection, that his bowel movements have been variable over the past few months, where he will have a normal full bowel movement, and other times less, and this is been unusual for him. He has not had any blood in stool. He has been on a different diet over the past several months, and has had a 70 pound intentional weight loss. Work-up in the emergency department included a CT scan of abdomen and pelvis, which suggested a transition point in the right lower quadrant, and acute small bowel obstruction. Admission Exam Per Admitting Provider The patient is awake, alert and oriented �3, well developed and well nourished, normocephalic and atraumatic, lying in bed and in no acute distress. HEENT--PERRL, EOMI, mucous membranes and oropharynx dry. Neck--supple. No JVD. No bruits. Thyroid normal, trachea midline, no adenopathy. Heart--normal S1 and S2. No murmurs, rubs or gallops. Lungs--clear bilaterally, no respiratory distress, no accessory muscle use. Abdomen--decreased bowel sounds and soft. Nontender post pain medication. Nondistended. Extremities--no cyanosis or clubbing. No edema. There are good distal pulses b/l. Dermatologic--normal skin turgor, normal color, no abnormal lymph nodes, no rash. Neurologic--cranial nerves II through XII grossly intact. Rheumatologic--normal range of motion. Psychiatric--normal affect. Principal Diagnosis Partial Small Bowel Obstruction Discharge Exam Constitutional WD/WN, vitals as above Eyes PERRL, conjunctivae normal, anicteric sclerae ENMT external ear and nose normal, oropharynx normal Neck trachea midline, no thyromegaly Respiratory normal respiratory effort, lungs clear to auscultation Cardiovascular RRR, no murmur, no edema Gastrointestinal (Abdomen) Inspection/Auscultation: abdomen normal to inspection and normal bowel sounds; abdomen not distended Percussion/Palpation: abdomen soft; abdomen nontender and no guarding Musculoskeletal no cyanosis or clubbing, extremities motor strength 5/5 Skin no rashes, warm and dry Neurologic patellar DTR's 2+ bilat, sensation intact and PERRL, EOMI, accommodation nl, no face palsy, no dysarthria Psychiatric A+Ox3, euthymic affect Lymphatic no cervical or axillary lymphadenopathy Discharge Data Allergies Allergy/AdvReac Type Severity Reaction Status Date / Time No Known Allergies Allergy Unknown Verified 02/05/19 01:44 Consultations 02/05/19 00:24 ED Decision to Admit Stat 02/05/19 02:09 Consult Case Management - Discharge Planning Routine Consult General Surgery Routine Ordered Studies 02/04/19 20:56 US gallbladder Stat 02/04/19 22:23 CT abd pelvis wo con Urgent Hospital Course (1) Small bowel obstruction: partial Small bowel obstruction with transition point in right lower quadrant- stop IV fluids and Zosyn day prior to discharge less pain, no vomiting KUB with normal bowel gas pattern advanced diet to clears - evening prior to discharge patient had a lot of flatus and small BM morning of discharge he had two bowel movements diet advanced to low fiber and he tolerated well he was extremely active, walking in the hallway d/c back to assisted living (2) Anticoagulated on Coumadin: Chronic anticoagulation for atrial fibrillation/AVR/PE- Coumadin was held at time of admission in case surgery was needed resume Coumadin on discharge (3) Pulmonary embolism: history of pulmonary embolism on Coumadin chronically (4) Duodenal ulcer: History of GI bleed secondary to duodenal ulcer requiring 4 units PRBCs during admission of 10/26. no current melena (5) GI bleed: history of GI bleed, no evidence of bleeding currently (6) History of aortic valve replacement with bioprosthetic valve: As noted. (7) Paroxysmal atrial fibrillation: As noted above. (8) Decubitus ulcer of sacral region, stage 1: Consult wound care (9) Chronic kidney disease, stage III (moderate): Cr is stable, continue to follow UO Total Time Total Time Spent Total Time Spent (In Minutes): 32 minutes Total Time Includes: Examination of the Patient, Discharge Planning, Medication Reconciliation and Communication With Other Providers (Dr. Le) Discharge Plan Discharge Items Patient Disposition: Home - Self-Care Reason For Visit: SBO, HX OF AVR/PE Discharge Diagnosis: Small bowel obstruction, resolved Condition: Good Discharge Goals: Decrease discomfort and Improve function Activity: Resume your previous activity Non-emergency contact: Primary Care Provider and Surgeon Call non-emergency contact if: you have any medication questions, your symptoms worsen, your pain is not controlled and you have a fever Follow-up/Referrals: Richar Horton MD [Primary Care Provider] - Diet: Regular Addtl Provider Instructions: Medications: no changes Small bowel obstruction, resolved there is a chance that this could occur again in the future recommend that you stay well hydrated recommend that you continue with high fiber diet but you should really eat more than you are eating now your weight is stable, would not recommend any further weight loss or fasting FOLLOW UP - Dr. Horton in one week, call his office for appt, need hospital follow up Prescriptions: Continued atorvastatin 20 mg tablet 20 mg PO DAILY RF: 0 warfarin 2.5 mg tablet 2.5 mg PO DAILY RF: 0 pantoprazole 40 mg tablet,delayed release (DR/EC) 40 mg PO DAILY RF: 0 indapamide 1.25 mg tablet 1.25 mg PO DAILY RF: 0 metoprolol tartrate 25 mg tablet 50 mg PO BID RF: 0 Stand-Alone Forms: [facility] Discharge Orders: Discharge Order (Routine); Ordered 02/07/19 Ordered By: Julio Peacock Admission Data Admit Date/Time: 02/05/19 01:27 Attending Provider: Julio Peacock Admit Provider: Shai Merida Primary Care Provider: Richar Horton Other Providers: Shai Merida ; Abhijeet Lino Service: Medical Other Interventions: Discharge Summary Assessment (RN) Last Done: 02/07/19 12:56 DC Date/Time DO NOT enter until pt leaves facility: 02/07/19 15:45
--- NOTE | 2019-02-07 13:09 | Surgery Progress Note ---
Date of Service February 07, 2019 Assessment & Plan (1) Small bowel obstruction: doing well clinically with no signs of SBO will advance diet. d/c planning. d/w Dr. Peacock Subjective pt seen. feeling well. nely diet. +bowel movement and flatus. Physical Exam Physical Exam: alert. nad abd: soft. nt. nd. +bs's. Results & Data Vital Signs (Past 12 Hours) Vital Signs Temp Pulse Pulse Resp BP BP Pulse Ox 02/07/19 12:56 36.6 C 61 64 18 128/68 135/75 96 02/07/19 07:02 36.6 C 64 18 128/68 96
[2019-03-12 13:52] LABS: Estimated Average Glucose 120 mg/dl; Hemoglobin A1C 5.8 % (4.5-5.6)
== END 2019-02-07 15:45 | disposition home or self-care (01) | DRG 390 ==
LOC: ED 20:20 → SUATTDRO 02-05 01:27 → 2S 02-05 01:27 → 4W 02-06 14:23
DX: J45.909 Unspecified asthma, uncomplicated; Z86.711 Personal history of pulmonary embolism; Z79.01 Long term (current) use of anticoagulants; Z95.2 Presence of prosthetic heart valve; I48.0 Paroxysmal atrial fibrillation; K56.609 Unspecified intestinal obstruction, unspecified as to partial versus complete obstruction; L89.151 Pressure ulcer of sacral region, stage 1; K26.9 Duodenal ulcer, unspecified as acute or chronic, without hemorrhage or perforation; N18.3 Chronic kidney disease, stage 3 (moderate)

== ENCOUNTER 2021-04-21 09:33 | Inpatient (IN) ==
--- NOTE | 2021-04-21 10:43 | Emergency Department Note ---
Impression & Plan Acute GI bleeding, Rectal bleeding, Anemia, COVID-19 ED Provider Note NAME: JEIMY SILVESTRE AGE: 89 SEX: M : 1930 ARRIVES VIA: Walk-In INFORMANT: [Patient] ED PROVIDER(S): [Navjot Hernandez MD] CHIEF COMPLAINT: Rectal bleeding HISTORY OF PRESENT ILLNESS: The patient is an 89-year-old male who presents to the ED with rectal bleeding that was noted today at his doctor's office. The patient has had a cough and some congestion for about a week or so. He thinks his symptoms are better. He was at his doctor's office for the cough when, he had a bout of rectal bleeding. There was no rectal or abdominal pain. He is not weaker than normal. No increased shortness of breath. No fever. The patient is vaccinated against COVID-19. The patient is on Eliquis. He did take his medication this morning. He states that he has had a blood transfusion in the past, nothing recently though. REVIEW OF SYSTEMS: See HPI for pertinent positives and negatives. A total of ten systems were reviewed and were otherwise negative. PMHx/PSHx: See Below SOCIAL HISTORY: See Below. PHYSICAL EXAM: GENERAL: Patient is in no acute distress. HEENT: No acute trauma, normocephalic atraumatic, mucous membranes moist, no nasal congestion, no scleral icterus. NECK: No stridor, no adenopathy, no meningismus, trachea is midline. LUNGS: There are some crackles/rhonchi at the left base. A moist cough is noted. No wheezing, no respiratory distress. HEART: Without murmurs gallops or rubs, regular rate and rhythm. ABDOMEN: Soft, nontender, bowel sounds positive, no hernias, no peritonitis. EXTREMITIES: No cyanosis, moderate bilateral pedal edema, full range of motion of all the joints without pain or difficulty, no signs for acute trauma. NEUROLOGIC: Oriented x 3, no acute motor or sensory deficits, no focal weakness. SKIN: No rash, no jaundice, no diaphoresis. Rectal: No hemorrhoid or anal tear/fissure. Digital exam reveals dark red blood. A potential fullness to the posterior aspect of the rectum was felt on exam. DIFFERENTIAL DIAGNOSIS: Diverticulosis, AVM, coagulopathy, colitis, inflammatory bowel disease, malignancy, Joelle-Tony tear, esophagitis, peptic ulcer disease, variceal bleed, gastritis, epistaxis, fissure, hemorrhoids, as well as other pathologies. EMERGENCY DEPARTMENT COURSE/PROCEDURES: ECG: Indication was rectal bleeding. The ECG shows a sinus rhythm with a first-degree AV block. There is a left bundle branch block. The rate is 63. There is no concerning ST elevation, no PVCs. The QTc is 437. Compared to an ECG from 04 Feb 2019, I see no significant change. Continuous Cardiac Monitoring: An order was placed for continuous cardiac mon itoring. The monitor shows a rate of 81 with sinus rhythm with a first-degree AV block. MEDICAL DECISION MAKING: There is no leukocytosis. The patient does have a mild anemia. He does have a history of anemia although, today's value is slightly lower than a recent lab draw. There was a normal platelet count. INR slightly elevated, likely from his Eliquis use. There was no kidney failure. No significant liver enzyme elevation. ECG shows a sinus rhythm with a first-degree AV block. No acute ischemic change. Cardiac enzyme testing x1 is not consistent with acute cardiac injury. Urinalysis does not show infection. Covid testing returned positive. Chest film did not show any obvious pneumonia. Abdominal and pelvis CT shows some potential perirectal inflammation. Prostatitis was a question. Bilateral lower lung congestion was seen. The patient has bright red blood via my rectal exam. He is likely bleeding from a lower GI source. He is on Eliquis and thus, he is at risk for excessive bleeding. The patient's cough for a week is likely from his Covid infection. He has a very mild case of Covid right now. Of note, he has been vaccinated. With the GI bleeding, with the bright red blood per rectum, with his Eliquis use, a hospital stay is warranted. I spoke to the patient and case management rn. The on-call hospitalist was consulted. Past Med/Surg History Medical History Duodenal ulcer GI bleed Required 4 units of PRBC- 11/2014 History of colon cancer ( see hospital note 02/05/19) History of DVT (deep vein thrombosis) Neoplasm of bladder Obesity Osteoarthritis Paroxysmal atrial fibrillation Pulmonary embolism (11/09/13) Respiratory failure with hypoxia (11/09/13) Small bowel obstruction Spinal stenosis Surgical History H/O abdominal surgery Hx of aortic valve replacement Bioprosthetic AVR 10/31/2014 Hx of bilateral hip replacements Hx of hernia repair Hx of total shoulder replacement Right -2012 Family History Other No significant family history Social History Smoking Status: Never smoker Hx Alcohol Use: No Hx Substance Use: No Preferred Language: Latvian Communication Ability: Effective Biological Science Aide Required: No Beliefs That Will Affect Care: None Current Living Situation: Spouse Feels Safe at Home: Yes Assistive Devices: Walker Allergies Allergies Allergy/AdvReac Type Severity Reaction Status Date / Time No Known Drug Allergies Allergy Verified 04/21/21 08:31 Home Meds Home Medications Medication Instructions Recorded Confirmed acetaminophen 500 mg tablet 1,000 mg PO DAILY PRN tab 06/19/19 04/21/21 [id number] acid 300 1 tab PO QAM 02/25/20 04/21/21 mcg-lycopene 600 mcg-lutein 300 mcg tablet (Centrum Silver Men) indapamide 1.25 mg tablet 1.25 mg PO QAM 04/05/21 04/21/21 ipratropium bromide 21 mcg (0.03 1 - 2 spray INTRANASAL BID PRN 04/21/21 04/21/21 %) nasal spray lactobacillus combination no.4 3 3,000 mmu cells PO QAM 04/21/21 04/21/21 billion cell capsule (Probiotic) Previous Rx's Medication Instructions Recorded pantoprazole 40 mg tablet,delayed 40 mg PO BID #180 tab 06/26/20 release apixaban 2.5 mg tablet (Eliquis) 2.5 mg PO BID #180 tab 08/04/20 metoprolol tartrate 25 mg tablet 50 mg PO BID #180 tab 02/01/21 Results & Data (ED) Vital Signs Vital Signs - 24 hr 04/21/21 09:48 04/21/21 10:43 04/21/21 11:00 Temperature 36.4 C L Temperature Source Temporal Artery Scan Pulse Rate 81 81 Pulse Rate from SpO2 Sensor Respiratory Rate 18 21 Respiratory Effort / Characteristics Non-Labored Respiratory Depth Normal Blood Pressure 107/69 Blood Pressure Mean 81 Pulse Oximetry 96 96 Oxygen Delivery Method Room Air Sepsis Recent Fever Within 48 Hours No Sepsis New/Unexplained Change in Mental Status No Sepsis Action Taken by Nursing No Action Required 04/21/21 11:10 04/21/21 11:30 04/21/21 11:45 Temperature Temperature Source Pulse Rate 69 83 69 Pulse Rate from SpO2 Sensor 62 61 Respiratory Rate 15 17 19 Respiratory Effort / Characteristics Respiratory Depth Blood Pressure 142/65 H 142/65 H Blood Pressure Mean 90 90 Pulse Oximetry 94 95 Oxygen Delivery Method Room Air Room Air Sepsis Recent Fever Within 48 Hours Sepsis New/Unexplained Change in Mental Status Sepsis Action Taken by Nursing 04/21/21 12:32 04/21/21 12:46 04/21/21 13:00 Temperature Temperature Source Pulse Rate 84 Pulse Rate from SpO2 Sensor 69 64 64 Respiratory Rate 12 23 24 Respiratory Effort / Characteristics Respiratory Depth Blood Pressure 135/67 152/63 H Blood Pressure Mean 89 92 Pulse Oximetry 96 96 96 Oxygen Delivery Method Room Air Room Air Room Air Sepsis Recent Fever Within 48 Hours Sepsis New/Unexplained Change in Mental Status Sepsis Action Taken by Nursing 04/21/21 13:15 04/21/21 13:30 04/21/21 13:45 Temperature Temperature Source Pulse Rate 74 Pulse Rate from SpO2 Sensor 65 64 Respiratory Rate 21 20 18 Respiratory Effort / Characteristics Respiratory Depth Blood Pressure 151/79 H 150/96 H 155/86 H Blood Pressure Mean 103 114 109 Pulse Oximetry 96 94 99 Oxygen Delivery Method Room Air Room Air Room Air Sepsis Recent Fever Within 48 Hours Sepsis New/Unexplained Change in Mental Status Sepsis Action Taken by Skilled Nursing Medications Current Medication List: was personally reviewed by me Laboratory Data Attestation: I reviewed the patient's lab results. Result diagrams: 04/21/21 10:47 04/21/21 10:47 Lab Results 04/21/21 04/21/21 04/21/21 Range/Units 10:47 10:47 10:47 WBC 7.23 (4.8-10.8) K/uL RBC 4.02 L (4.7-6.1) M/uL Hgb 12.0 L (14.0-18.0) g/dL Hct 37.6 L (42-52) % MCV 93.5 (80-100) fL MCH 29.9 (25-34) pg MCHC 31.9 L (32-36) g/dL RDW Std Deviation 46.6 H (36.4-46.3) fL RDW Coeff of June 13.6 (11.5-14.5) % Plt Count 187 (130-400) K/uL MPV 9.6 (7.4-10.4) fL Immature Gran % (Auto) 0.1 % Neut % (Auto) 79.2 % Lymph % (Auto) 10.2 % Major % (Auto) 8.6 % Eos % (Auto) 1.5 % Baso % (Auto) 0.4 % Neut # (Auto) 5.72 (1.4-6.5) K/uL Lymph # (Auto) 0.74 L (1.2-3.4) K/uL Major # (Auto) 0.62 H (0.11-0.59) K/uL Eos # (Auto) 0.11 (0-0.5) K/uL Baso # (Auto) 0.03 (0-0.2) K/uL Immature Gran # (Auto) 0.01 (0.00-0.02) K/uL PT 11.8 (9.0-12.0) Seconds INR 1.2 H (0.9-1.1) APTT 29.8 (21.0-31.0) Seconds PTT Ratio 1.1 Sodium (136-145) mmol/L Potassium (3.5-5.1) mmol/L Chloride (98-107) mmol/L Carbon Dioxide (21-32) mmol/L Anion Gap (3-11) BUN (7-18) mg/dl Creatinine (0.6-1.4) mg/dl Est Cr Clr Drug Dosing ml/min Est GFR ( Amer) ml/min Est GFR (Non-Af Amer) ml/min BUN/Creatinine Ratio (10-20) Glucose (70-99) mg/dl Calcium (8.5-10.1) mg/dl Total Bilirubin (0.2-1) mg/dl AST (15-37) U/L ALT (12-78) U/L Alkaline Phosphatase (45-117) U/L Troponin I (0-0.045) ng/ml Total Protein (6.4-8.2) gm/dl Albumin (3.4-5.0) gm/dl Globulin (2.5-4.0) gm/dl Albumin/Globulin Ratio (0.9-2) Urine Color Urine Appearance (Clear) Urine pH (4.5-7.5) Ur Specific [facility] [place] (1.000-1.030) Urine Protein (Negative) Urine Glucose (UA) (Negative) Urine Ketones (Negative) Urine Blood (Negative) Urine Nitrite (Negative) Urine Bilirubin (Negative) Urine Urobilinogen (Negative) Ur Leukocyte Esterase (Negative) Urine WBC (Auto) (0-5) /hpf Urine RBC (Auto) (0-4) /hpf U Hyaline Cast (Auto) (0-5) /lpf U Epithel Cells (Auto) (0-5) /lpf Urine Bacteria (Auto) (Negative) COVID-19 Eval Order SARS-CoV-2 (PCR) (Negative) Blood Type O Positive Antibody Screen NEGATIVE 04/21/21 04/21/21 04/21/21 Range/Units 10:47 10:54 10:54 WBC (4.8-10.8) K/uL RBC (4.7-6.1) M/uL Hgb (14.0-18.0) g/dL Hct (42-52) % MCV (80-100) fL MCH (25-34) pg MCHC (32-36) g/dL RDW Std Deviation (36.4-46.3) fL RDW Coeff of June (11.5-14.5) % Plt Count (130-400) K/uL MPV (7.4-10.4) fL Immature Gran % (Auto) % Neut % (Auto) % Lymph % (Auto) % Major % (Auto) % Eos % (Auto) % Baso % (Auto) % Neut # (Auto) (1.4-6.5) K/uL Lymph # (Auto) (1.2-3.4) K/uL Major # (Auto) (0.11-0.59) K/uL Eos # (Auto) (0-0.5) K/uL Baso # (Auto) (0-0.2) K/uL Immature Gran # (Auto) (0.00-0.02) K/uL PT (9.0-12.0) Seconds INR (0.9-1.1) APTT (21.0-31.0) Seconds PTT Ratio Sodium 136 (136-145) mmol/L Potassium 4.1 (3.5-5.1) mmol/L Chloride 105 (98-107) mmol/L Carbon Dioxide 30 (21-32) mmol/L Anion Gap 1.0 L (3-11) BUN 22 H (7-18) mg/dl Creatinine 1.11 (0.6-1.4) mg/dl Est Cr Clr Drug Dosing 50.4 ml/min Est GFR ( Amer) 68.3 ml/min Est GFR (Non-Af Amer) 59.0 ml/min BUN/Creatinine Ratio 19.9 (10-20) Glucose 102 H (70-99) mg/dl Calcium 8.7 (8.5-10.1) mg/dl Total Bilirubin 0.6 (0.2-1) mg/dl AST 37 (15-37) U/L ALT 22 (12-78) U/L Alkaline Phosphatase 114 (45-117) U/L Troponin I < 0.015 (0-0.045) ng/ml Total Protein 6.9 (6.4-8.2) gm/dl Albumin 2.8 L (3.4-5.0) gm/dl Globulin 4.1 H (2.5-4.0) gm/dl Albumin/Globulin Ratio 0.7 L (0.9-2) Urine Color Urine Appearance (Clear) Urine pH (4.5-7.5) Ur Specific [facility] [place] (1.000-1.030) Urine Protein (Negative) Urine Glucose (UA) (Negative) Urine Ketones (Negative) Urine Blood (Negative) Urine Nitrite (Negative) Urine Bilirubin (Negative) Urine Urobilinogen (Negative) Ur Leukocyte Esterase (Negative) Urine WBC (Auto) (0-5) /hpf Urine RBC (Auto) (0-4) /hpf U Hyaline Cast (Auto) (0-5) /lpf U Epithel Cells (Auto) (0-5) /lpf Urine Bacteria (Auto) (Negative) COVID-19 Eval Order Covid19 at [facility] SARS-CoV-2 (PCR) POSITIVE A* (Negative) Blood Type Antibody Screen 04/21/21 Range/Units 14:25 WBC (4.8-10.8) K/uL RBC (4.7-6.1) M/uL Hgb (14.0-18.0) g/dL Hct (42-52) % MCV (80-100) fL MCH (25-34) pg MCHC (32-36) g/dL RDW Std Deviation (36.4-46.3) fL RDW Coeff of June (11.5-14.5) % Plt Count (130-400) K/uL MPV (7.4-10.4) fL Immature Gran % (Auto) % Neut % (Auto) % Lymph % (Auto) % Major % (Auto) % Eos % (Auto) % Baso % (Auto) % Neut # (Auto) (1.4-6.5) K/uL Lymph # (Auto) (1.2-3.4) K/uL Major # (Auto) (0.11-0.59) K/uL Eos # (Auto) (0-0.5) K/uL Baso # (Auto) (0-0.2) K/uL Immature Gran # (Auto) (0.00-0.02) K/uL PT (9.0-12.0) Seconds INR (0.9-1.1) APTT (21.0-31.0) Seconds PTT Ratio Sodium (136-145) mmol/L Potassium (3.5-5.1) mmol/L Chloride (98-107) mmol/L Carbon Dioxide (21-32) mmol/L Anion Gap (3-11) BUN (7-18) mg/dl Creatinine (0.6-1.4) mg/dl Est Cr Clr Drug Dosing ml/min Est GFR ( Amer) ml/min Est GFR (Non-Af Amer) ml/min BUN/Creatinine Ratio (10-20) Glucose (70-99) mg/dl Calcium (8.5-10.1) mg/dl Total Bilirubin (0.2-1) mg/dl AST (15-37) U/L ALT (12-78) U/L Alkaline Phosphatase (45-117) U/L Troponin I (0-0.045) ng/ml Total Protein (6.4-8.2) gm/dl Albumin (3.4-5.0) gm/dl Globulin (2.5-4.0) gm/dl Albumin/Globulin Ratio (0.9-2) Urine Color Yellow Urine Appearance Clear (Clear) Urine pH 8.0 H (4.5-7.5) Ur Specific [facility] [place] 1.019 (1.000-1.030) Urine Protein Negative (Negative) Urine Glucose (UA) Negative (Negative) Urine Ketones Negative (Negative) Urine Blood Trace H (Negative) Urine Nitrite Negative (Negative) Urine Bilirubin Negative (Negative) Urine Urobilinogen Negative (Negative) Ur Leukocyte Esterase Negative (Negative) Urine WBC (Auto) 0 (0-5) /hpf Urine RBC (Auto) 0-4 (0-4) /hpf U Hyaline Cast (Auto) 0 (0-5) /lpf U Epithel Cells (Auto) 0-5 (0-5) /lpf Urine Bacteria (Auto) Negative (Negative) COVID-19 Eval Order SARS-CoV-2 (PCR) (Negative) Blood Type Antibody Screen Administered Medications Discontinued Medications Sodium Chloride (Nss) 500 mls @ 999 mls/hr IV .Q31M ISABEL Stop: 04/21/21 11:15 Last Infusion: 04/21/21 12:17 Dose: 0 mls/hr Documented by: [id number] Admin: 04/21/21 11:34 Dose: 999 mls/hr Documented by: [id number] Ioversol (Optiray 320 100ml) 95 ml IV ONCE ONE Stop: 04/21/21 12:21 Last Admin: 04/21/21 12:21 Dose: 95 ml Documented by: [id number] Imaging Data Radiologist's Impression: Abdomen/Pelvis CT 04/21/21 10:[address] WITH IV CONTRAST CT DOSE: 544.71 mGy.cm HISTORY: Acute rectal bleeding rectal bleeding TECHNIQUE: Multiaxial CT images of the abdomen and pelvis were performed following the IV administration of 95 cc of Optiray, A dose lowering technique was utilized adhering to the principles of ALARA. COMPARISON STUDY: CT abdomen pelvis 02/04/2019 FINDINGS: Cardiomegaly with coronary artery calcifications. Prior median sternotomy with aortic valvular prosthesis. Bibasilar mucous plugging is noted with chronic fibrosis and new left greater than right reticular nodular opacities and irregular left lung base consolidation. No pneumatosis or pneumoperitoneum. The spleen and adrenal glands are unremarkable. Atrophic pancreas with parenchymal calcifications suggestive of chronic pancreatitis. Cholelithiasis. Gallbladder is either contracted or partially surgically absent. Moderate intrahepatic and extrahepatic biliary ductal dilation with the common bile duct measuring up to approximately 1.2 cm. This appears stable from comparison. There are several scattered hepatic cysts measuring up to 2 cm redemonstrated along with hepatic hypodensities which are too small to characterize. The portal vein appears patent. Several bilateral renal cysts redemonstrated measuring up to 7.5 cm on the left and 4.7 cm on the right. There is no hydronephrosis. There is urinary bladder wall thickening with partial distention. There is marked limited evaluation of the pelvic structures secondary to streak artifact from bilateral hip total joint arthroplasties and large pelvic calcifications interposed between the prostate and rectum. Extensive atherosclerotic plaque the abdominal aorta without aneurysm. Infrarenal IVC filter. There is no adenopathy. The rectum is not well visualized secondary to aforementioned streak artifact in the pelvis. There is equivocal rectal wall thickening. There is small volume of free pelvic fluid. Mild fecal retention. The visualized appendix is noninflamed. There are a few small bowel air-fluid levels within the lower abdomen and pelvis without dilation to suggest obstruction. Subcutaneous edema is noted adjacent to the distal sacrum and coccyx. Severe degenerative changes of the lumbar spine with multilevel central canal or neural foraminal narrowing. Demineralized appearance the bones. No acute fracture identified. Unchanged appearance of the sacrum and coccyx. No definite osseous erosions identified to suggest osteomyelitis. IMPRESSION: 1. Limited evaluation of the pelvis secondary to streak artifact from bilateral hip total joint arthroplasties. There is equivocal rectal wall thickening with small volume of free pelvic fluid. Correlate clinically to exclude proctitis. 2. Cholelithiasis with contracted gallbladder versus partial cholecystectomy changes. Unchanged intrahepatic and extrahepatic biliary ductal dilation. Correlate with LFTs. 3. No bowel obstruction. 4. Bibasilar mucous plugging with reticular nodular opacities suspicious for aspiration pneumonitis. 5. Subcutaneous edema adjacent to the sacrum redemonstrated with possible decubitus ulcer. 6. Additional findings as above. ACT 112: Negative or not required by law. The above report was generated using voice recognition software. It may contain grammatical, syntax or spelling errors. Electronically signed by: Darrell Ricci M.D. 04/21/2021 12:54 PM Chest X-Ray 04/21/21 10:38 XR chest 1V portable HISTORY: 89 years-old Male cough acute cough COMPARISON: 11/14/2014 TECHNIQUE: Portable AP view of the chest FINDINGS: Cardiomediastinal and hilar silhouettes are unchanged. Prior median sternotomy with cardiac valvular prosthesis. Calcified plaque the thoracic aorta. Chronic opacity of the medial right lung base and right cardiophrenic angle. Chronic interstitial coarsening of the lung bases with suggestion of scattered bilateral pulmonary granulomata. Degenerative changes of the spine and left shoulder. Right shoulder total joint arthroplasty. IMPRESSION: 1. Chronic interstitial coarsening with unchanged opacity of the medial right lung base suggestive of fibrosis/atelectasis. 2. Prior granulomatous disease. ACT 112: Negative or not required by law. The above report was generated using voice recognition software. It may contain grammatical, syntax or spelling errors. Electronically signed by: Darrell Ricci M.D. 04/21/2021 11:23 AM Discharge Plan Visit Data Chief Complaint: Rectal Bleed Stated Complaint: RECTAL BLEEDING ED Provider: Navjot Hernandez Discharge Problem: Acute GI bleeding, Rectal bleeding, Anemia, COVID-19 Patient Disposition: Admitted As Inpatient Condition: Fair Forms Stand Alone Forms: [employer] Prescriptions Prescriptions: No Action pantoprazole 40 mg tablet,delayed release (DR/EC) 40 mg PO BID Qty: 180 RF: 3 Eliquis 2.5 mg tablet 2.5 mg PO BID Qty: 180 RF: 3 metoprolol tartrate 25 mg tablet 50 mg PO BID Qty: 180 RF: 3 Centrum Silver Men 300-600-300 mcg tablet 1 tab PO QAM RF: 0 indapamide 1.25 mg tablet 1.25 mg PO QAM RF: 0 acetaminophen 500 mg tablet 1,000 mg PO DAILY PRN (Reason: Pain) RF: 0 Probiotic 3 billion cell Capsule 3,000 mmu cells PO QAM RF: 0 ipratropium bromide 0.03 % spray,non-aerosol 1 - 2 spray intranasal BID PRN (Reason: dryness) RF: 0 Referrals Referrals: Galo Horton MD [Physician] -
[2021-04-21] MEDS ORDERED: SODIUM CHLORIDE 0.9% 500 ML IV SCH (10:45)
[2021-04-21 10:59] LABS: Basophils # (auto) 0.03 K/uL (0-0.2); Basophils % (auto) 0.4 %; Eosinophils # (auto) 0.11 K/uL (0-0.5); Eosinophils % (auto) 1.5 %; Hematocrit (blood only) 37.6 % (42-52); Immature Granulocytes # (auto) 0.01 K/uL (0.00-0.02); Immature Granulocytes % (auto) 0.1 %; Lymphocytes # (auto) 0.74 K/uL (1.2-3.4); Lymphocytes % (auto) 10.2 %; Mean Corpuscular Hemoglobin 29.9 pg (25-34); Mean Corpuscular Hgb Conc 31.9 g/dL (32-36); Mean Corpuscular Volume 93.5 fL (80-100); Mean Platelet Volume 9.6 fL (7.4-10.4); Monocytes # (auto) 0.62 K/uL (0.11-0.59); Monocytes % (auto) 8.6 %; Neutrophils # (auto) 5.72 K/uL (1.4-6.5); Neutrophils % (auto) 79.2 %; Platelet Count 187 K/uL (130-400); RDW Coefficient of Variation 13.6 % (11.5-14.5); RDW Standard Deviation 46.6 fL (36.4-46.3); Red Blood Count 4.02 M/uL (4.7-6.1); White Blood Count 7.23 K/uL (4.8-10.8)
[2021-04-21 11:10] LABS: INR 1.2 (0.9-1.1); Partial Thromboplastin Ratio 1.1; Partial Thromboplastin Time 29.8 Seconds (21.0-31.0); Prothrombin Time 11.8 Seconds (9.0-12.0)
[2021-04-21 11:19] LABS: Alanine Aminotransferase 22 U/L (12-78); Albumin Level 2.8 gm/dl (3.4-5.0); Aspartate Aminotransferase 37 U/L (15-37); BUN Creatinine Ratio 19.9 (10-20); Blood Urea Nitrogen 22 mg/dl (7-18); Calcium 8.7 mg/dl (8.5-10.1); Carbon Dioxide 30 mmol/L (21-32); Chloride 105 mmol/L (98-107); Creatinine Clr Calc Pharmacy 50.4 ml/min; Est GFR (African American) 68.3 ml/min; Glucose 102 mg/dl (70-99); Potassium 4.1 mmol/L (3.5-5.1); Sodium 136 mmol/L (136-145)
[2021-04-21 11:24] LABS: Albumin Globulin Ratio 0.7 (0.9-2); Alkaline Phosphatase 114 U/L (45-117); Bilirubin,Total 0.6 mg/dl (0.2-1); Globulin 4.1 gm/dl (2.5-4.0); Total Protein 6.9 gm/dl (6.4-8.2); Troponin I < 0.015 ng/ml (0-0.045)
--- NOTE | 2021-04-21 11:24 | XRay Report ---
XR chest 1V portable HISTORY: 89 years-old Male cough acute cough COMPARISON: 11/14/2014 TECHNIQUE: Portable AP view of the chest FINDINGS: Cardiomediastinal and hilar silhouettes are unchanged. Prior median sternotomy with cardiac valvular prosthesis. Calcified plaque the thoracic aorta. Chronic opacity of the medial right lung base and ri ght cardiophrenic angle. Chronic interstitial coarsening of the lung bases with suggestion of scatter ed bilateral pulmonary granulomata. Degenerative changes of the spine and left shoulder. Right should er total joint arthroplasty. IMPRESSION: 1. Chronic interstitial coarsening with unchanged opacity of the medial right lung base suggestive of fibrosis/atelectasis. 2. Prior granulomatous disease. ACT 112: Negative or not required by law. The above report was generated using voice recognition software. It may contain grammatical, syntax o r spelling errors. Electronically signed by: Darrell Ricci M.D. 04/21/2021 11:23 AM
[2021-04-21] MEDS ORDERED: OPTIRAY 320 100ml IV ONE (12:20)
--- NOTE | 2021-04-21 12:56 | CT Scan Report ---
ABDOMEN AND PELVIS CT WITH IV CONTRAST CT DOSE: 544.71 mGy.cm HISTORY: Acute rectal bleeding rectal bleeding TECHNIQUE: Multiaxial CT images of the abdomen and pelvis were performed following the IV administrat ion of 95 cc of Optiray, A dose lowering technique was utilized adhering to the principles of ALARA. COMPARISON STUDY: CT abdomen pelvis 02/04/2019 FINDINGS: Cardiomegaly with coronary artery calcifications. Prior median sternotomy with aortic valvu lar prosthesis. Bibasilar mucous plugging is noted with chronic fibrosis and new left greater than ri ght reticular nodular opacities and irregular left lung base consolidation. No pneumatosis or pneumop eritoneum. The spleen and adrenal glands are unremarkable. Atrophic pancreas with parenchymal calcifications sug gestive of chronic pancreatitis. Cholelithiasis. Gallbladder is either contracted or partially surgic ally absent. Moderate intrahepatic and extrahepatic biliary ductal dilation with the common bile duct measuring up to approximately 1.2 cm. This appears stable from comparison. There are several scatter ed hepatic cysts measuring up to 2 cm redemonstrated along with hepatic hypodensities which are too s mall to characterize. The portal vein appears patent. Several bilateral renal cysts redemonstrated measuring up to 7.5 cm on the left and 4.7 cm on the rig ht. There is no hydronephrosis. There is urinary bladder wall thickening with partial distention. The re is marked limited evaluation of the pelvic structures secondary to streak artifact from bilateral hip total joint arthroplasties and large pelvic calcifications interposed between the prostate and re ctum. Extensive atherosclerotic plaque the abdominal aorta without aneurysm. Infrarenal IVC filter. T here is no adenopathy. The rectum is not well visualized secondary to aforementioned streak artifact in the pelvis. There is equivocal rectal wall thickening. There is small volume of free pelvic fluid. Mild fecal retention. The visualized appendix is noninflamed. There are a few small bowel air-fluid levels within the lower abdomen and pelvis without dilation to suggest obstruction. Subcutaneous edema is noted adjacent to the distal sacrum and coccyx. Severe degenerative changes of the lumbar spine with multilevel central canal or neural foraminal narrowing. Demineralized appearance the bones. No acute fracture identifie d. Unchanged appearance of the sacrum and coccyx. No definite osseous erosions identified to suggest osteomyelitis. IMPRESSION: 1. Limited evaluation of the pelvis secondary to streak artifact from bilateral hip total joint arthr oplasties. There is equivocal rectal wall thickening with small volume of free pelvic fluid. Correlat e clinically to exclude proctitis. 2. Cholelithiasis with contracted gallbladder versus partial cholecystectomy changes. Unchanged intra hepatic and extrahepatic biliary ductal dilation. Correlate with LFTs. 3. No bowel obstruction. 4. Bibasilar mucous plugging with reticular nodular opacities suspicious for aspiration pneumonitis. 5. Subcutaneous edema adjacent to the sacrum redemonstrated with possible decubitus ulcer. 6. Additional findings as above. ACT 112: Negative or not required by law. The above report was generated using voice recognition software. It may contain grammatical, syntax o r spelling errors. Electronically signed by: Darrell Ricci M.D. 04/21/2021 12:54 PM
--- NOTE | 2021-04-21 14:02 | Electrocardiogram Report ---
Test Reason : Blood Pressure : / mmHG Vent. Rate : 063 BPM Atrial Rate : 063 BPM P-R Int : 234 ms QRS Dur : 154 ms QT Int : 428 ms P-R-T Axes : 050 -19 094 degrees QTc Int : 437 ms Sinus rhythm with 1st degree A-V block Left bundle branch block Abnormal ECG When compared with ECG of 04-FEB-2019 20:44, No significant change was found Confirmed by Ronen Yeh ([id number]) on 04/21/2021 2:02:44 PM Referred By: REFERRED SELF Confirmed By:Ben Yeh
[2021-04-21 14:45] LABS: Appearance Urine Clear (Clear); Bacteria Urine Automated Negative (Negative); Bilirubin Urine Negative (Negative); Blood Urine Trace (Negative); Cast Urine Automated 0 /lpf (0-5); Color Urine Yellow; Epithelial Cell Urine Auto 0-5 /lpf (0-5); Glucose Urine UA Negative (Negative); Ketones Urine Negative (Negative); Leukocyte Esterase Urine Negative (Negative); Nitrite Urine Negative (Negative); Protein Urine Negative (Negative); RBC Urine Automated 0-4 /hpf (0-4); Specific Gravity Urine 1.019 (1.000-1.030); Urobilinogen Urine Negative (Negative); WBC Urine Automated 0 /hpf (0-5)
--- NOTE | 2021-04-21 16:21 | History & Physical Report ---
Date of Service April 21, 2021 Assessment & Plan (1) Rectal bleeding: Plan: Rectal bleeding/proctitis- Hold Eliquis Zosyn to treat GI and aspiration pneumonia Consult gastroenterology (2) Proctitis: Plan: See above (3) COVID-19: Plan: COVID-19/bilateral aspiration pneumonia- Decadron 6 mg IV daily Zosyn 3.375 mg IV every 8 hours Duonebs every 4 hours while awake and every 2 hours when necessary. (4) Aspiration pneumonia: Plan: Consult speech therapy for assessment (5) Paroxysmal atrial fibrillation: Plan: Paroxysmal atrial fibrillation/hypertension- Hold apixaban, indapamide. Continue with Toprol tartrate with hold parameters (6) Hypertension: Plan: See above History of Present Illness Chief Complaint: The patient presents to the emergency department with complaint of acute onset of rectal bleeding earlier in the day today. Primary Care Provider: Rad Masters MD The patient is an 89-year-old male with a past medical history including paroxysmal atrial fibrillation, fecal incontinence, osteoarthritis, decubitus ulcer stage I sacral region, ASCVD, long-term anticoagulant use, asthma, BPH with LUTS, hypercholesterolemia, hyperglycemia, hypertension, and allergic rhinitis, chronic renal insufficiency, restrictive lung disease and history of aortic valve replacement with bioprosthetic valve. Patient had about 7 days of an intermittently productive moist cough, that preceded the episode of bright red blood per rectum this morning. His reports that he does have a tendency to cough when he eats for quite a while. He denies any associated shortness of breath or dyspnea on exertion. He presently lives at [facility] with his . He did have both COVID-19 vaccines earlier in the season. Work-up in the emergency department included CT scan of abdomen pelvis suggesting possible proctitis, bilateral aspiration pneumonia, a sacral decubitus, and old bilateral renal cysts. COVID-19 test was positive in the ED Allergies Allergy/AdvReac Type Severity Reaction Status Date / Time No Known Drug Allergies Allergy Verified 04/21/21 08:31 Home Medications Medication Instructions Recorded Confirmed Type acetaminophen 500 mg tablet 1,000 mg PO DAILY PRN tab 06/19/19 04/21/21 History camaahqy-tty-hdcnt acid 300 1 tab PO QAM 02/25/20 04/21/21 History mcg-lycopene 600 mcg-lutein 300 mcg tablet (Centrum Silver Men) pantoprazole 40 mg tablet,delayed 40 mg PO BID #180 tab 06/26/20 04/21/21 Rx release apixaban 2.5 mg tablet (Eliquis) 2.5 mg PO BID #180 tab 08/04/20 04/21/21 Rx metoprolol tartrate 25 mg tablet 50 mg PO BID #180 tab 02/01/21 04/21/21 Rx indapamide 1.25 mg tablet 1.25 mg PO QAM 04/05/21 04/21/21 History ipratropium bromide 21 mcg (0.03 1 - 2 spray INTRANASAL BID PRN 04/21/21 04/21/21 History %) nasal spray lactobacillus combination no.4 3 3,000 mmu cells PO QAM 04/21/21 04/21/21 History billion cell capsule (Probiotic) Past Med/Surg History Medical History Duodenal ulcer GI bleed Required 4 units of PRBC- 11/2014 History of colon cancer ( see hospital note 02/05/19) History of DVT (deep vein thrombosis) Neoplasm of bladder Obesity Osteoarthritis Paroxysmal atrial fibrillation Pulmonary embolism (11/09/13) Respiratory failure with hypoxia (11/09/13) Small bowel obstruction Spinal stenosis Surgical History H/O abdominal surgery Hx of aortic valve replacement Bioprosthetic AVR 10/31/2014 Hx of bilateral hip replacements Hx of hernia repair Hx of total shoulder replacement Right -2011 Family History Other No significant family history Social History Smoking Status: Never smoker Hx Alcohol Use: No Hx Substance Use: No Preferred Language: Bengali Communication Ability: Effective Manager Ambulatory Required: No Beliefs That Will Affect Care: None Current Living Situation: Spouse Feels Safe at Home: Yes Assistive Devices: Walker Review of Systems Review of Systems: The patient denies chest pain, palpitations, shortness of breath, dyspnea on exertion, lower extremity swelling, sore throat, fevers, chills, sweats, nausea, vomiting, diarrhea , constipation, abdominal pain, pelvic pain, blood in urine, dysuria, urinary frequency or urgency, lightheadedness, dizziness, headache, memory loss, loss of consciousness, rash, imbalance, focal or generalized weakness, numbness or tingling in arms or legs, generalized arthralgias or myalgias, back or neck pain, or night sweats. The review of systems is otherwise negative other than for that already noted above, and at least 10 systems have been reviewed. Physical Exam Physical Exam: The patient is awake, alert and oriented 3, well developed and well nourished, normocephalic and atraumatic, lying in bed and in no acute distress. HEENT--PERRL, EOMI, mucous membranes and oropharynx mildly dry. Neck--supple. No JVD. No bruits. Thyroid normal, trachea midline, no adenopathy. Heart--normal S1 and S2. No murmurs, rubs or gallops. Lungs--clear bilaterally, no respiratory distress, no accessory muscle use. Abdomen--normal bowel sounds and soft. Nontender. Nondistended, no hernias or masses, no organomegaly. Extremities--no cyanosis or clubbing. No edema. Dermatologic--normal skin turgor, normal color, no abnormal lymph nodes, no rash. Neurologic--cranial nerves II through XII grossly intact. Rheumatologic--normal range of motion. Psychiatric--normal affect. Rectal examination--per ED bright red blood Results & Data Results & Data ([facility]) Vital Signs (Past 12 Hours) Vital Signs Temp Pulse Resp BP Pulse Ox 04/21/21 15:31 63 17 134/74 95 04/21/21 15:16 67 14 143/69 H 94 04/21/21 15:01 25 H 158/66 H 97 04/21/21 14:46 21 147/81 H 95 04/21/21 14:30 20 151/72 H 93 04/21/21 14:20 21 154/77 H 96 04/21/21 14:19 93 H 18 94 04/21/21 13:45 74 18 155/86 H 99 04/21/21 13:30 20 150/96 H 94 04/21/21 13:15 21 151/79 H 96 04/21/21 13:00 84 24 152/63 H 96 04/21/21 12:46 23 135/67 96 04/21/21 12:32 12 96 04/21/21 11:45 69 19 142/65 H 95 04/21/21 11:30 83 17 142/65 H 94 04/21/21 11:10 69 15 04/21/21 11:00 81 21 04/21/21 10:43 96 04/21/21 09:48 97.5 F L 81 18 107/69 96 Laboratory Results Laboratory Results WBC 7.23 K/uL (4.8-10.8) 04/21/21 10:47 RBC 4.02 M/uL (4.7-6.1) L 04/21/21 10:47 Hgb 12.0 g/dL (14.0-18.0) L 04/21/21 10:47 Hct 37.6 % (42-52) L 04/21/21 10:47 MCV 93.5 fL (80-100) 04/21/21 10:47 MCH 29.9 pg (25-34) 04/21/21 10:47 MCHC 31.9 g/dL (32-36) L 04/21/21 10:47 RDW Std Deviation 46.6 fL (36.4-46.3) H 04/21/21 10:47 RDW Coeff of June 13.6 % (11.5-14.5) 04/21/21 10:47 Plt Count 187 K/uL (130-400) 04/21/21 10:47 MPV 9.6 fL (7.4-10.4) 04/21/21 10:47 Immature Gran % (Auto) 0.1 % 04/21/21 10:47 Neut % (Auto) 79.2 % 04/21/21 10:47 Lymph % (Auto) 10.2 % 04/21/21 10:47 [place] % (Auto) 8.6 % 04/21/21 10:47 Eos % (Auto) 1.5 % 04/21/21 10:47 Baso % (Auto) 0.4 % 04/21/21 10:47 Neut # (Auto) 5.72 K/uL (1.4-6.5) 04/21/21 10:47 Lymph # (Auto) 0.74 K/uL (1.2-3.4) L 04/21/21 10:47 [place] # (Auto) 0.62 K/uL (0.11-0.59) H 04/21/21 10:47 Eos # (Auto) 0.11 K/uL (0-0.5) 04/21/21 10:47 Baso # (Auto) 0.03 K/uL (0-0.2) 04/21/21 10:47 Immature Gran # (Auto) 0.01 K/uL (0.00-0.02) 04/21/21 10:47 PT 11.8 Seconds (9.0-12.0) 04/21/21 10:47 INR 1.2 (0.9-1.1) H 04/21/21 10:47 APTT 29.8 Seconds (21.0-31.0) 04/21/21 10:47 PTT Ratio 1.1 04/21/21 10:47 Sodium 136 mmol/L (136-145) 04/21/21 10:47 Potassium 4.1 mmol/L (3.5-5.1) 04/21/21 10:47 Chloride 105 mmol/L (98-107) 04/21/21 10:47 Carbon Dioxide 30 mmol/L (21-32) 04/21/21 10:47 Anion Gap 1.0 (3-11) L 04/21/21 10:47 BUN 22 mg/dl (7-18) H 04/21/21 10:47 Creatinine 1.11 mg/dl (0.6-1.4) 04/21/21 10:47 Est Cr Clr Drug Dosing 50.4 ml/min 04/21/21 10:47 Est GFR ( Amer) 68.3 ml/min 04/21/21 10:47 Est GFR (Non-Af Amer) 59.0 ml/min 04/21/21 10:47 BUN/Creatinine Ratio 19.9 (10-20) 04/21/21 10:47 Glucose 102 mg/dl (70-99) H 04/21/21 10:47 Calcium 8.7 mg/dl (8.5-10.1) 04/21/21 10:47 Total Bilirubin 0.6 mg/dl (0.2-1) 04/21/21 10:47 AST 37 U/L (15-37) 04/21/21 10:47 ALT 22 U/L (12-78) 04/21/21 10:47 Alkaline Phosphatase 114 U/L (45-117) 04/21/21 10:47 Troponin I < 0.015 ng/ml (0-0.045) 04/21/21 10:47 Total Protein 6.9 gm/dl (6.4-8.2) 04/21/21 10:47 Albumin 2.8 gm/dl (3.4-5.0) L 04/21/21 10:47 Globulin 4.1 gm/dl (2.5-4.0) H 04/21/21 10:47 Albumin/Globulin Ratio 0.7 (0.9-2) L 04/21/21 10:47 Urine Color Yellow 04/21/21 14:25 Urine Appearance Clear (Clear) 04/21/21 14:25 Urine pH 8.0 (4.5-7.5) H 04/21/21 14:25 Ur Specific [place] 1.019 (1.000-1.030) 04/21/21 14:25 Urine Protein Negative (Negative) 04/21/21 14:25 Urine Glucose (UA) Negative (Negative) 04/21/21 14:25 Urine Ketones Negative (Negative) 04/21/21 14:25 Urine Blood Trace (Negative) H 04/21/21 14:25 Urine Nitrite Negative (Negative) 04/21/21 14:25 Urine Bilirubin Negative (Negative) 04/21/21 14:25 Urine Urobilinogen Negative (Negative) 04/21/21 14:25 Ur Leukocyte Esterase Negative (Negative) 04/21/21 14:25 Urine WBC (Auto) 0 /hpf (0-5) 04/21/21 14:25 Urine RBC (Auto) 0-4 /hpf (0-4) 04/21/21 14:25 U Hyaline Cast (Auto) 0 /lpf (0-5) 04/21/21 14:25 U Epithel Cells (Auto) 0-5 /lpf (0-5) 04/21/21 14:25 Urine Bacteria (Auto) Negative (Negative) 04/21/21 14:25 COVID-19 Eval Order Covid19 at [facility] 04/21/21 10:54 SARS-CoV-2 (PCR) POSITIVE (Negative) A* 04/21/21 10:54 Blood Type O Positive 04/21/21 10:47 Antibody Screen NEGATIVE 04/21/21 10:47 Impressions Abdomen/Pelvis CT 04/21/21 10:[address] WITH IV CONTRAST CT DOSE: 544.71 mGy.cm HISTORY: Acute rectal bleeding rectal bleeding TECHNIQUE: Multiaxial CT images of the abdomen and pelvis were performed following the IV administration of 95 cc of Optiray, A dose lowering technique was utilized adhering to the principles of ALARA. COMPARISON STUDY: CT abdomen pelvis 02/04/2019 FINDINGS: Cardiomegaly with coronary artery calcifications. Prior median sternotomy with aortic valvular prosthesis. Bibasilar mucous plugging is noted with chronic fibrosis and new left greater than right reticular nodular opacities and irregular left lung base consolidation. No pneumatosis or pneumoperitoneum. The spleen and adrenal glands are unremarkable. Atrophic pancreas with parenchym al calcifications suggestive of chronic pancreatitis. Cholelithiasis. Gallbladder is either contracted or partially surgically absent. Moderate intrahepatic and extrahepatic biliary ductal dilation with the common bile duct measuring up to approximately 1.2 cm. This appears stable from comparison. There are several scattered hepatic cysts measuring up to 2 cm redemonstrated along with hepatic hypodensities which are too small to characterize. The portal vein appears patent. Several bilateral renal cysts redemonstrated measuring up to 7.5 cm on the left and 4.7 cm on the right. There is no hydronephrosis. There is urinary bladder wall thickening with partial distention. There is marked limited evaluation of the pelvic structures secondary to streak artifact from bilateral hip total joint arthroplasties and large pelvic calcifications interposed between the prostate and rectum. Extensive atherosclerotic plaque the abdominal aorta without aneurysm. Infrarenal IVC filter. There is no adenopathy. The rectum is not well visualized secondary to aforementioned streak artifact in the pelvis. There is equivocal rectal wall thickening. There is small volume of free pelvic fluid. Mild fecal retention. The visualized appendix is noninflamed. There are a few small bowel air-fluid levels within the lower abdomen and pelvis without dilation to suggest obstruction. Subcutaneous edema is noted adjacent to the distal sacrum and coccyx. Severe degenerative changes of the lumbar spine with multilevel central canal or neural foraminal narrowing. Demineralized appearance the bones. No acute fracture identified. Unchanged appearance of the sacrum and coccyx. No definite osseous erosions identified to suggest osteomyelitis. IMPRESSION: 1. Limited evaluation of the pelvis secondary to streak artifact from bilateral hip total joint arthroplasties. There is equivocal rectal wall thickening with small volume of free pelvic fluid. Correlate clinically to exclude proctitis. 2. Cholelithiasis with contracted gallbladder versus partial cholecystectomy changes. Unchanged intrahepatic and extrahepatic biliary ductal dilation. Correlate with LFTs. 3. No bowel obstruction. 4. Bibasilar mucous plugging with reticular nodular opacities suspicious for aspiration pneumonitis. 5. Subcutaneous edema adjacent to the sacrum redemonstrated with possible decubitus ulcer. 6. Additional findings as above. ACT 112: Negative or not required by law. The above report was generated using voice recognition software. It may contain grammatical, syntax or spelling errors. Electronically signed by: Darrell Ricci M.D. 04/21/2021 12:54 PM Chest X-Ray 04/21/21 10:38 XR chest 1V portable HISTORY: 89 years-old Male cough acute cough COMPARISON: 11/14/2014 TECHNIQUE: Portable AP view of the chest FINDINGS: Cardiomediastinal and hilar silhouettes are unchanged. Prior median sternotomy with cardiac valvular prosthesis. Calcified plaque the thoracic aorta. Chronic opacity of the medial right lung base and right cardiophrenic angle. Chronic interstitial coarsening of the lung bases with suggestion of scattered bilateral pulmonary granulomata. Degenerative changes of the spine and left shoulder. Right shoulder total joint arthroplasty. IMPRESSION: 1. Chronic interstitial coarsening with unchanged opacity of the medial right lung base suggestive of fibrosis/atelectasis. 2. Prior granulomatous disease. ACT 112: Negative or not required by law. The above report was generated using voice recognition software. It may contain grammatical, syntax or spelling errors. Electronically signed by: Darrell Ricci M.D. 04/21/2021 11:23 AM ECG Additional Comments: [facility] [place] Electrocardiogram ReportSigned Patient: JEIMY SILVESTREit Date: 04/21/21MR#: [id number] Phy: Acct ID: [id number] Phy: Rad Masters MDBirth Date: 1930Fam Phy:Age: 89Location: EDSex: MRoom/Bed: cc: ~ DICTATED BY: Ronen Yeh MD Test Reason : Blood Pressure : / mmHG Vent. Rate : 063 BPM Atrial Rate : 063 BPM P-R Int : 234 ms QRS Dur : 154 ms QT Int : 428 ms P-R-T Axes : 050 -19 094 degrees QTc Int : 437 ms Sinus rhythm with 1st degree A-V block Left bundle branch block Abnormal ECG When compared with ECG of 04-FEB-2019 20:44, No significant change was found Confirmed by Ronen Yeh ([id number]) on 04/21/2021 2:02:44 PM Referred By: REFERRED SELF Confirmed By:Ben Yeh Signed By:04/21/21 1402 Dictated: 04/21/21 1009 Transcribed: Straddle Truck Operator: The status of this report is Signed.Draft = Not yet reviewed or approved by Medical Physician.Signed = Reviewed and approved by Medical Physician. Code Status & VTE Plan Code Status Full code VTE Prophylaxis Plan VTE Prophylaxis will be ordered: Yes PG Care Time/CCT Total # of Minutes Spent Total Time Spent with Patient: Total time spent is greater than 50% in coordination of care (as documented) at patient's floor/unit and/or counseling patient: Coding Level of Care Code 64075 Initial Inpt Care Lvl 3 Diagnoses Rectal bleeding K62.5 COVID-19 U07.1 Paroxysmal atrial fibrillation I48.0 Hypertension I10 Proctitis K62.89 Aspiration pneumonia J69.0
[2021-04-21] MEDS ORDERED: PIPERACILL/TAZOBAC CONSULT ACTIVE PRN (18:32)
[2021-04-21] MEDS ORDERED: ONDANSETRON INJ 2 MG/ML 2 ML VIAL IV PRN (18:32)
[2021-04-21] MEDS ORDERED: ACETAMINOPHEN 500 MG TAB PO PRN (18:49)
[2021-04-21] MEDS ORDERED: NSS + 20MEQ KCL 20 MEQ/1,000 ML BAG IV SCH (19:00)
[2021-04-21] MEDS ORDERED: dexAMETHasone 10 MG in SYRINGE 0 ML IV ONE (19:00)
[2021-04-21] MEDS ORDERED: PIPERACILLIN/TAZOBACTAM 3.375 GM in DEXTROSE 5% 100 ML IV ONE (19:00)
[2021-04-21] MEDS: ALBUT/IPRATROP 3MG/0.5MG NEB 3 ML VIAL NEB SCH (19:35)
[2021-04-21] MEDS: PANTOprazole 40 MG TAB PO SCH (23:02)
[2021-04-21] MEDS: METOPROLOL TARTRATE 50 MG TAB PO SCH (23:02)
[2021-04-22] MEDS: PIPERACILLIN/TAZOBACTAM 3.375 GM in DEXTROSE 5% 100 ML IV SCH ×3 (02:13→18:01)
[2021-04-22] MEDS: ALBUT/IPRATROP 3MG/0.5MG NEB 3 ML VIAL NEB SCH ×3 (07:58→14:55)
[2021-04-22] MEDS: MULTIVITAMIN TAB PO SCH (08:06)
[2021-04-22] MEDS: PANTOprazole 40 MG TAB PO SCH ×2 (08:06→20:12)
[2021-04-22] MEDS: METOPROLOL TARTRATE 50 MG TAB PO SCH ×2 (08:06→20:12)
[2021-04-22] MEDS: ADVANCED PROBIOTIC 1250 MG CAPSULE PO SCH (08:06)
[2021-04-22 08:54] LABS: Hematocrit (blood only) 38.5 % (42-52); Hemoglobin 12.4 g/dL (14.0-18.0); Lymphocytes # (auto) 0.34 K/uL (1.2-3.4); Lymphocytes % (auto) 8.5 %; Mean Corpuscular Hemoglobin 29.7 pg (25-34); Mean Corpuscular Hgb Conc 32.2 g/dL (32-36); Mean Corpuscular Volume 92.1 fL (80-100); Mean Platelet Volume 9.8 fL (7.4-10.4); Monocytes # (auto) 0.03 K/uL (0.11-0.59); Monocytes % (auto) 0.7 %; Neutrophils # (auto) 3.64 K/uL (1.4-6.5); Neutrophils % (auto) 90.8 %; Platelet Count 201 K/uL (130-400); RDW Coefficient of Variation 13.4 % (11.5-14.5); RDW Standard Deviation 45.3 fL (36.4-46.3); Red Blood Count 4.18 M/uL (4.7-6.1); White Blood Count 4.01 K/uL (4.8-10.8)
[2021-04-22 09:19] LABS: Albumin Level 2.8 gm/dl (3.4-5.0); BUN Creatinine Ratio 21.7 (10-20); Calcium 8.8 mg/dl (8.5-10.1); Est GFR (African American) 66.2 ml/min; Est GFR (Non-African American) 57.1 ml/min; Potassium 4.3 mmol/L (3.5-5.1)
[2021-04-22 09:20] LABS: Albumin Globulin Ratio 0.7 (0.9-2); Bilirubin,Total 0.7 mg/dl (0.2-1); Globulin 4.3 gm/dl (2.5-4.0); Total Protein 7.1 gm/dl (6.4-8.2)
--- NOTE | 2021-04-22 09:35 | Communication Note ---
Date of Service: April 22, 2021 Patient is an 89 yo male with a PMH of A fib on Eliquis, osteoarthritis, ASCVD, asthma, BPH, HLD, HTN, allergic rhinitis, chronic renal insufficiency, res trictive lung disease, and history of aortic valve replacement. Per chart review, it appears that the patient had 7 days of a productive cough. He then had a single episode of BRBPR early yesterday morning. He had a CT scan of the abdomen/pelvis that suggested a possible proctitis. Previous colonoscopy in [address] Rajput but report is unavailable for review. Patient is hemodynamically stable. H/H 12.4/38.5. BP 137/67. Patient is currently admitted with more pressing issues given his COVID pneumonia. Eliquis is reportedly on hold per primary team. This patient's clinical case was reviewed at length by Dr. Schmid & myself. At this point, patient is not a candidate for endoscopic evaluation. Would continue to monitor H/H and monitor for clinical signs/symptoms of active, ongoing GI b leeding. Would advise using a hydrocortisone suppository BID given the CT findings of possible proctitis. Would advise consistent use of a bowel regimen with Metamucil daily as well as Colace 100 mg BID. Would also add Protonix 40 mg BID as well. Agree with DEMETRA Guzman as above Patient is HD stable and has no urgent GI need, and therefore, will hold off on in-person evaluation until following improvement in COVID pneumonia. CBC w Diff Results Results CBC w Diff: RBC 4.18 M/uL (4.7-6.1) L 04/22/21 WBC 4.01 K/uL (4.8-10.8) L 04/22/21 Hgb 12.4 g/dL (14.0-18.0) L 04/22/21 Hct 38.5 % (42-52) L 04/22/21 MCV 92.1 fL (80-100) 04/22/21 MCH 29.7 pg (25-34) 04/22/21 MCHC 32.2 g/dL (32-36) 04/22/21 RDW Standard Deviation 45.3 fL (36.4-46.3) 04/22/21 RDW Coefficient of Variation 13.4 % (11.5-14.5) 04/22/21 Plt Count 201 K/uL (130-400) 04/22/21 MPV 9.8 fL (7.4-10.4) 04/22/21 Neutrophils (%) (Auto) 90.8 % 04/22/21 Lymphocytes (%) (Auto) 8.5 % 04/22/21 Monocytes # (Auto) 0.03 K/uL (0.11-0.59) L 04/22/21 Eosinophils # (Auto) 0.00 K/uL (0-0.5) 04/22/21 Immature Granulocyte % (Auto) 0.0 % 04/22/21 Neutrophils # (Auto) 3.64 K/uL (1.4-6.5) 04/22/21 Lymphocytes # (Auto) 0.34 K/uL (1.2-3.4) L 04/22/21 Monocytes # (Auto) 0.03 K/uL (0.11-0.59) L 04/22/21 Eosinophils # (Auto) 0.00 K/uL (0-0.5) 04/22/21 Basophils # (Auto) 0.00 K/uL (0-0.2) 04/22/21 Immature Granulocyte # (Auto) 0.00 K/uL (0.00-0.02) 04/22/21 Red Blood Cell Morphology Unremarkable 11/20/19 COVID-19 Results Results COVID-19 Adm Lab Results: RBC 4.18 M/uL (4.7-6.1) L 04/22/21 WBC 4.01 K/uL (4.8-10.8) L 04/22/21 Hgb 12.4 g/dL (14.0-18.0) L 04/22/21 Hct 38.5 % (42-52) L 04/22/21 Plt Count 201 K/uL (130-400) 04/22/21 Neutrophils (%) (Auto) 90.8 % 04/22/21 Lymphocytes (%) (Auto) 8.5 % 04/22/21 Monocytes # (Auto) 0.03 K/uL (0.11-0.59) L 04/22/21 Eosinophils # (Auto) 0.00 K/uL (0-0.5) 04/22/21 Immature Granulocyte % (Auto) 0.0 % 04/22/21 Neutrophils # (Auto) 3.64 K/uL (1.4-6.5) 04/22/21 Lymphocytes # (Auto) 0.34 K/uL (1.2-3.4) L 04/22/21 Monocytes # (Auto) 0.03 K/uL (0.11-0.59) L 04/22/21 Eosinophils # (Auto) 0.00 K/uL (0-0.5) 04/22/21 Basophils # (Auto) 0.00 K/uL (0-0.2) 04/22/21 Immature Granulocyte # (Auto) 0.00 K/uL (0.00-0.02) 04/22/21 Na 139 mmol/L (136-145) 04/22/21 K 4.3 mmol/L (3.5-5.1) 04/22/21 Cl 107 mmol/L (98-107) 04/22/21 CO2 25 mmol/L (21-32) 04/22/21 Anion Gap 7.0 (3-11) 04/22/21 BUN 25 mg/dl (7-18) H 04/22/21 Creatinine 1.14 mg/dl (0.6-1.4) 04/22/21 BUN/Creatinine Ratio 21.7 (10-20) H 04/22/21 Glucose Level 146 mg/dl (70-99) H 04/22/21 Ca 8.8 mg/dl (8.5-10.1) 04/22/21 Total Bilirubin 0.7 mg/dl (0.2-1) 04/22/21 AST/SGOT 34 U/L (15-37) 04/22/21 ALT/SGPT 23 U/L (12-78) 04/22/21 Alkaline Phosphatase 119 U/L (45-117) H 04/22/21 Total Protein 7.1 gm/dl (6.4-8.2) 04/22/21 Albumin 2.8 gm/dl (3.4-5.0) L 04/22/21 Globulin 4.3 gm/dl (2.5-4.0) H 04/22/21 Albumin/Globulin Ratio 0.7 (0.9-2) L 04/22/21 Troponin I < 0.015 ng/ml (0-0.045) 04/21/21 PTT 29.8 Seconds (21.0-31.0) 04/21/21 INR 1.2 (0.9-1.1) H 04/21/21 COVID-19 PCR POSITIVE (Negative) A* 04/21/21 Chest X-Ray 04/21/21 Chemistry ([facility]) Results [facility] Results: Sodium 139 mmol/L (136-145) 04/22/21 Potassium 4.3 mmol/L (3.5-5.1) 04/22/21 Chloride 107 mmol/L (98-107) 04/22/21 BUN 25 mg/dl (7-18) H 04/22/21 Creatinine 1.14 mg/dl (0.6-1.4) 04/22/21 Glucose 146 mg/dl (70-99) H 04/22/21
[2021-04-22] MEDS ORDERED: PANTOprazole 40 MG TAB PO SCH (09:45)
[2021-04-22] MEDS: HYDROCORTISONE ACETATE 25 MG SUPP PR SCH ×2 (10:48→20:12)
[2021-04-22] MEDS: DOCUSATE SODIUM 100 MG CAP PO SCH ×2 (10:48→20:12)
[2021-04-22] MEDS: PSYLLIUM 58.6% POWDER PACKET PO SCH (11:56)
[2021-04-22] MEDS: dexAMETHasone 6 MG in SYRINGE 0 ML IV SCH (15:38)
[2021-04-22] MEDS ORDERED: ALBUT/IPRATROP 3MG/0.5MG NEB 3 ML VIAL NEB PRN (16:45)
--- NOTE | 2021-04-22 19:22 | Hospitalist Progress Note ---
Date of Service April 22, 2021 Assessment & Plan (1) Rectal bleeding: Plan: Presented with rectal bleeding in the setting of 2 weeks of cough secondary to Covid-19 as below This is painless rectal bleeding. Hemoglobin has gone up since yesterday to 12.4 No obvious hemorrhoids on examination Appreciate GI consultation-plan to likely perform colonoscopy after recovery from Covid-we will have him follow-up as an outpatient Continue to hold Eliquis -Follow CBC in the morning -Start hydrocortisone rectal suppository twice daily, docusate twice daily, fiber daily, and Protonix 40 mg p.o. twice daily as per GI Okay to DC IV fluids (2) Proctitis: Plan: See above, seen on CT abdomen/pelvis Hydrocortisone suppositories and stool softener, fiber as above (3) COVID-19: Plan: COVID-19 with cough x2 weeks and nasal congestion with postnasal drip Chest x-ray with chronic appearing interstitial coarsening with unchanged opacity of medial right lung base suggestive of fibrosis/atelectasis, prior granulomatous disease Fortunately he is afebrile and feels fairly well otherwise He is not hypoxic currently but did have one reading of 92% on room air on the evening of admission He did not have any aspiration on speech therapy evaluation Doubt aspiration pneumonia-discontinue antibiotics Continue Decadron 6 mg IV daily for now and complete 5-day course of p.o. steroids upon discharge Continue duo nebs but make as needed (4) Paroxysmal atrial fibrillation: Plan: Currently remains in sinus bradycardia, first-degree AV block Continue to hold Eliquis for rectal bleeding Continue metoprolol (5) Hypertension: Plan: Blood pressures well controlled Continue metoprolol Holding home indapamide (6) History of aortic valve replacement with bioprosthetic valve: Plan: Noted (7) Dilated bile duct: Plan: Dilated intra and extrahepatic biliary ducts and common bile duct dilatation versus partial cholecystectomy seen on CT abdomen/pelvis LFTs are normal and he is having no abdominal pain Also with cholelithiasis. Radiologist notes this is all unchanged from previous No further work-up needed at this time (8) DVT prophylaxis: Plan: SCDs, no anticoagulation due to GI bleeding Disposition-continued stay on telemetry, but if hemoglobin remains stable and no significant rectal bleeding overnight, he can be discharged home tomorrow Admission and Anticipated Discharge Date Admission Date: April 21, 2021 Subjective Patient reports feeling well. Still with a mild cough and sinus congestion with some mucus but denies shortness of breath. He remains 96% on room air. He does not have any chest pain or abdominal pain. He did have some bright red blood per rectum today on the bed and some mixed in with stool in the toilet. The bleeding is painless. He does report that he had been constipated the last couple of weeks and also has been coughing a lot causing strain. He has no history of rectal bleeding or hemorrhoids that he knows of. His last colonoscopy was in 2001 Telemetry with sinus rhythm and first-degree AV block with rates in the 40s to 60s I discussed his care with the speech therapist Review of Systems Review of Systems: All systems reviewed & are unremarkable except as noted in HPI & below Physical Exam Constitutional: WD/WN, vitals as above Eyes: PERRL, conjunctivae normal, anicteric sclerae ENMT: external ear and nose normal, oropharynx normal Neck: trachea midline, no thyromegaly Respiratory: normal respiratory effort, lungs clear to auscultation Cardiovascular: RRR, no murmur, no edema Chest (Breasts): Chest: normal inspection of chest Gastrointestinal (Abdomen): normal bowel sounds, soft, nontender, no hepatosplenomegaly Rectal Exam: no hemorrhoids and + abnormal visual inspection of rectum (Small amount of bright red blood in the perianal region, no clots) Musculoskeletal: Extremities: extremities normal to inspection; no cyanosis and no clubbing Skin: no rashes, warm and dry Neurologic: moves all extremities and awake; no focal motor deficits Psychiatric: A+Ox3, euthymic affect Lymphatic: no lymphedema Results & Data Results & Data ([facility]) Vital Signs (Past 12 Hours) Vital Signs Temp Pulse Pulse Resp BP Pulse Ox 04/22/21 17:07 36.9 C 78 18 127/70 96 04/22/21 15:00 71 04/22/21 14:55 75 20 94 04/22/21 12:07 36.6 C 76 18 143/76 H 98 04/22/21 10:46 70 16 95 04/22/21 08:52 51 L 04/22/21 07:52 36.7 C 89 18 137/67 96 Laboratory Results 04/22/21 04/22/21 Range/Units 08:18 08:18 WBC 4.01 L (4.8-10.8) K/uL RBC 4.18 L (4.7-6.1) M/uL Hgb 12.4 L (14.0-18.0) g/dL Hct 38.5 L (42-52) % MCV 92.1 (80-100) fL MCH 29.7 (25-34) pg MCHC 32.2 (32-36) g/dL RDW Std Deviation 45.3 (36.4-46.3) fL RDW Coeff of June 13.4 (11.5-14.5) % Plt Count 201 (130-400) K/uL MPV 9.8 (7.4-10.4) fL Immature Gran % (Auto) 0.0 % Neut % (Auto) 90.8 % Lymph % (Auto) 8.5 % [facility] % (Auto) 0.7 % Eos % (Auto) 0.0 % Baso % (Auto) 0.0 % Neut # (Auto) 3.64 (1.4-6.5) K/uL Lymph # (Auto) 0.34 L (1.2-3.4) K/uL [facility] # (Auto) 0.03 L (0.11-0.59) K/uL Eos # (Auto) 0.00 (0-0.5) K/uL Baso # (Auto) 0.00 (0-0.2) K/uL Immature Gran # (Auto) 0.00 (0.00-0.02) K/uL Sodium 139 (136-145) mmol/L Potassium 4.3 (3.5-5.1) mmol/L Chloride 107 (98-107) mmol/L Carbon Dioxide 25 (21-32) mmol/L Anion Gap 7.0 (3-11) BUN 25 H (7-18) mg/dl Creatinine 1.14 (0.6-1.4) mg/dl Est Cr Clr Drug Dosing 49.0 ml/min Est GFR ( Amer) 66.2 ml/min Est GFR (Non-Af Amer) 57.1 ml/min BUN/Creatinine Ratio 21.7 H (10-20) Glucose 146 H (70-99) mg/dl Calcium 8.8 (8.5-10.1) mg/dl Total Bilirubin 0.7 (0.2-1) mg/dl AST 34 (15-37) U/L ALT 23 (12-78) U/L Alkaline Phosphatase 119 H (45-117) U/L Total Protein 7.1 (6.4-8.2) gm/dl Albumin 2.8 L (3.4-5.0) gm/dl Globulin 4.3 H (2.5-4.0) gm/dl Albumin/Globulin Ratio 0.7 L (0.9-2) PG Care Time/CCT Total # of Minutes Spent Total Time Spent with Patient: Total time spent is greater than 50% in coordination of care (as documented) at patient's floor/unit and/or counseling patient: Coding Level of Care Code 92262 Subseq Hosp Care Lvl 3 Diagnoses Rectal bleeding K62.5 Proctitis K62.89 COVID-19 U07.1 Paroxysmal atrial fibrillation I48.0 Hypertension I10 DVT prophylaxis Z29.9 History of aortic valve replacement with bioprosthetic valve Z95.3 Dilated bile duct K83.8
[2021-04-23 06:41] LABS: Hematocrit (blood only) 36.9 % (42-52); Hemoglobin 11.9 g/dL (14.0-18.0); Immature Granulocytes # (auto) 0.02 K/uL (0.00-0.02); Immature Granulocytes % (auto) 0.3 %; Lymphocytes # (auto) 0.47 K/uL (1.2-3.4); Lymphocytes % (auto) 6.8 %; Mean Corpuscular Hemoglobin 29.7 pg (25-34); Mean Corpuscular Hgb Conc 32.2 g/dL (32-36); Mean Platelet Volume 10.1 fL (7.4-10.4); Monocytes # (auto) 0.33 K/uL (0.11-0.59); Monocytes % (auto) 4.8 %; Neutrophils # (auto) 6.07 K/uL (1.4-6.5); Neutrophils % (auto) 88.1 %; Platelet Count 195 K/uL (130-400); RDW Coefficient of Variation 13.5 % (11.5-14.5); RDW Standard Deviation 45.5 fL (36.4-46.3); Red Blood Count 4.01 M/uL (4.7-6.1); White Blood Count 6.89 K/uL (4.8-10.8)
[2021-04-23 07:29] LABS: Albumin Level 2.8 gm/dl (3.4-5.0); BUN Creatinine Ratio 21.3 (10-20); Calcium 8.7 mg/dl (8.5-10.1); Creatinine Clr Calc Pharmacy 42.4 ml/min; Est GFR (African American) 55.4 ml/min; Est GFR (Non-African American) 47.8 ml/min; Potassium 3.7 mmol/L (3.5-5.1)
[2021-04-23 07:32] LABS: Albumin Globulin Ratio 0.7 (0.9-2); Bilirubin,Total 0.4 mg/dl (0.2-1); Globulin 4.1 gm/dl (2.5-4.0); Total Protein 6.9 gm/dl (6.4-8.2)
[2021-04-23] MEDS: DOCUSATE SODIUM 100 MG CAP PO SCH (08:59)
[2021-04-23] MEDS: HYDROCORTISONE ACETATE 25 MG SUPP PR SCH (09:00)
[2021-04-23] MEDS: ADVANCED PROBIOTIC 1250 MG CAPSULE PO SCH (09:00)
[2021-04-23] MEDS: METOPROLOL TARTRATE 50 MG TAB PO SCH (09:00)
[2021-04-23] MEDS: MULTIVITAMIN TAB PO SCH (09:01)
[2021-04-23] MEDS: PSYLLIUM 58.6% POWDER PACKET PO SCH (09:01)
[2021-04-23] MEDS: PANTOprazole 40 MG TAB PO SCH (09:01)
--- NOTE | 2021-04-23 11:05 | Communication Note ---
Date of Service: April 23, 2021 Patient is an [address] findings of proctitis in the setting of rectal bleeding. Suspect this is related to constipation. Due to COVID19 infection and lack of emergent GI issues, would defer further evaluation to outpatient setting. I will have our outpatient office reach out to patient to arrange a colonoscopy to occur after patient has recovered from COVID19 infection. Agree with Ynes Christiansen, DEMETRA as above Will defer GI workup to outpatient setting when he is fully recovered from COVID 19 infection.
[2021-04-23 12:55] VITALS: BP 124/76; PULSE 86; TEMP 98.2; O2SAT 98
--- NOTE | 2021-04-23 14:04 | Discharge Summary ---
Date of Service April 23, 2021 Admission HPI Per Admitting Provider The patient is an 89-year-old male with a past medical history including paroxysmal atrial fibrillation, fecal incontinence, osteoarthritis, decubitus ulcer stage I sacral region, ASCVD, long-term anticoagulant use, asthma, BPH with LUTS, hypercholesterolemia, hyperglycemia, hypertension, and allergic rhinitis, chronic renal insufficiency, restrictive lung disease and history of aortic valve replacement with bioprosthetic valve. Patient had about 7 days of an intermittently productive moist cough, that preceded the episode of bright red blood per rectum this morning. His reports that he does have a tende ncy to cough when he eats for quite a while. He denies any associated shortness of breath or dyspnea on exertion. He presently lives at [facility] with his . He did have both COVID-19 vaccines earlier in the season. Work-up in the emergency department included CT scan of abdomen pelvis suggesting possible proctitis, bilateral aspiration pneumonia, a sacral decubitus, and old bilateral renal cysts. COVID-19 test was positive in the ED Principal Diagnosis Rectal bleeding, Proctitis, COVID-19 Discharge Exam Constitutional WD/WN, vitals as above Neck trachea midline, no thyromegaly Respiratory normal respiratory effort, lungs clear to auscultation Cardiovascular RRR, no murmur, no edema Chest (Breasts) Chest: normal inspection of chest Gastrointestinal (Abdomen) normal bowel sounds, soft, nontender, no hepatosplenomegaly Musculoskeletal Extremities: extremities normal to inspection; no cyanosis and no clubbing Skin no rashes, warm and dry Neurologic moves all extremities and awake; no focal motor deficits Psychiatric A+Ox3, euthymic affect Lymphatic no lymphedema Discharge Data Allergies Allergy/AdvReac Type Severity Reaction Status Date / Time No Known Drug Allergies Allergy Verified 04/21/21 08:31 Consultations 04/21/21 13:05 ED Decision to Admit Stat 04/21/21 18:32 Consult Gastroenterology Routine Ordered Studies 04/21/21 10:38 CT abd pelvis IV con only Stat Abdomen/Pelvis CT 04/21/21 10:[address] WITH IV CONTRAST CT DOSE: 544.71 mGy.cm HISTORY: Acute rectal bleeding rectal bleeding TECHNIQUE: Multiaxial CT images of the abdomen and pelvis were performed following the IV administration of 95 cc of Optiray, A dose lowering technique was utilized adhering to the principles of ALARA. COMPARISON STUDY: CT abdomen pelvis 02/04/2019 FINDINGS: Cardiomegaly with coronary artery calcifications. Prior median sternotomy with aortic valvular prosthesis. Bibasilar mucous plugging is noted with chronic fibrosis and new left greater than right reticular nodular opacities and irregular left lung base consolidation. No pneumatosis or pneumoperitoneum. The spleen and adrenal glands are unremarkable. Atrophic pancreas with parenchymal calcifications suggestive of chronic pancreatitis. Cholelithiasis. Gallbladder is either contracted or partially surgically absent. Moderate intrahepatic and extrahepatic biliary ductal dilation with the common bile duct measuring up to approximately 1.2 cm. This appears stable from comparison. There are several scattered hepatic cysts measuring up to 2 cm redemonstrated along with hepatic hypodensities which are too small to characterize. The portal vein appears patent. Several bilateral renal cysts redemonstrated measuring up to 7.5 cm on the left and 4.7 cm on the right. There is no hydronephrosis. There is urinary bladder wall thickening with partial distention. There is marked limited evaluation of the pelvic structures secondary to streak artifact from bilateral hip total joint arthroplasties and large pelvic calcifications interposed between the prostate and rectum. Extensive atherosclerotic plaque the abdominal aorta without aneurysm. Infrarenal IVC filter. There is no adenopathy. The rectum is not well visualized secondary to aforementioned streak artifact in the pelvis. There is equivocal rectal wall thickening. There is small volume of free pelvic fluid. Mild fecal retention. The visualized appendix is noninflamed. There are a few small bowel air-fluid levels within the lower abdomen and pelvis without dilation to suggest obstruction. Subcutaneous edema is noted adjacent to the distal sacrum and coccyx. Severe degenerative changes of the lumbar spine with multilevel central canal or neural foraminal narrowing. Demineralized appearance the bones. No acute fracture identified. Unchanged appearance of the sacrum and coccyx. No definite osseous erosions identified to suggest osteomyelitis. IMPRESSION: 1. Limited evaluation of the pelvis secondary to streak artifact from bilateral hip total joint arthroplasties. There is equivocal rectal wall thickening with small volume of free pelvic fluid. Correlate clinically to exclude proctitis. 2. Cholelithiasis with contracted gallbladder versus partial cholecystectomy changes. Unchanged intrahepatic and extrahepatic biliary ductal dilation. Correlate with LFTs. 3. No bowel obstruction. 4. Bibasilar mucous plugging with reticular nodular opacities suspicious for aspiration pneumonitis. 5. Subcutaneous edema adjacent to the sacrum redemonstrated with possible decubitus ulcer. 6. Additional findings as above. ACT 112: Negative or not required by law. The above report was generated using voice recognition software. It may contain grammatical, syntax or spelling errors. Electronically signed by: Darrell Ricci M.D. 04/21/2021 12:54 PM Chest X-Ray 04/21/21 10:38 XR chest 1V portable HISTORY: 89 years-old Male cough acute cough COMPARISON: 11/14/2014 TECHNIQUE: Portable AP view of the chest FINDINGS: Cardiomediastinal and hilar silhouettes are unchanged. Prior median sternotomy with cardiac valvular prosthesis. Calcified plaque the thoracic aorta. Chronic opacity of the medial right lung base and right cardiophrenic angle. Chronic interstitial coarsening of the lung bases with suggestion of scattered bilateral pulmonary granulomata. Degenerative changes of the spine and left shoulder. Right shoulder total joint arthroplasty. IMPRESSION: 1. Chronic interstitial coarsening with unchanged opacity of the medial right lung base suggestive of fibrosis/atelectasis. 2. Prior granulomatous disease. ACT 112: Negative or not required by law. The above report was generated using voice recognition software. It may contain grammatical, syntax or spelling errors. Electronically signed by: Darrell Ricci M.D. 04/21/2021 11:23 AM Hospital Course (1) Rectal bleeding: Presented with rectal bleeding in the setting of 2 weeks of cough secondary to Covid-19 as below Also taking hydrocodone cough syrup at home which was constipating him This is painless rectal bleeding. With proctitis on CT abd/pelvis likely from constipation Hemoglobin has gone just slightly down over 2 days to 11.9 and bleeding resolved after holding Eliquis No obvious hemorrhoids on examination externally Appreciate GI consultation-plan to perform colonoscopy after recovery from Covid-we will have him follow-up as an outpatient w/ GI Continue to hold Eliquis x 3 days and then restart on 04/25 if no further bleeding -Started hydrocortisone rectal suppository twice daily x 2 weeks, docusate twice daily, fiber daily as per GI dc to home (2) Proctitis: See above, seen on CT abdomen/pelvis Hydrocortisone suppositories and stool softener, fiber as above (3) COVID-19: COVID-19 with cough x2 weeks and nasal congestion with postnasal drip Chest x-ray with chronic appearing interstitial coarsening with unchanged opacity of medial right lung base suggestive of fibrosis/atelectasis, prior granulomatous disease Fortunately he is afebrile and feels fairly well otherwise Cough much improved by day of discharge He is not hypoxic currently but did have one reading of 92% on room air on the evening of admission and has been on room air otherwise at 96% POx He did not have any aspiration on speech therapy evaluation Continue Decadron 6 mg IV daily for now and complete 10-day course of p.o. steroids upon discharge (4) Paroxysmal atrial fibrillation: Currently remains in sinus bradycardia, first-degree AV block Continue to hold Eliquis for rectal bleeding Continue metoprolol (5) Hypertension: Blood pressures well controlled Continue metoprolol Holding home indapamide here but restart on discharge (6) History of aortic valve replacement with bioprosthetic valve: Noted (7) Dilated bile duct: Dilated intra and extrahepatic biliary ducts and common bile duct dilatation versus partial cholecystectomy seen on CT abdomen/pelvis LFTs are normal and he is having no abdominal pain Also with cholelithiasis. Radiologist notes this is all unchanged from previous No further work-up needed at this time (8) DVT prophylaxis: SCDs, no anticoagulation due to GI bleeding Disposition-dc to home Total Time Total Time Spent Total Time Spent (In Minutes): 35 min Discharge Plan Discharge Items Patient Disposition: Personal [facility] Reason For Visit: COVID 19, ASPIRATION PNEUMONIA, RECTAL BLEED Discharge Diagnosis: COVID-19, Rectal bleeding from proctitis Condition on Discharge: Fair Activity: Resume your previous activity Non-emergency contact: Primary Care Provider and Geodetic Engineer Call non-emergency contact if: you have any medication questions, your symptoms worsen and you have a fever Follow-up/Referrals: Brayan Schmid DO [Physician] - (Dr. Schmid's office will contact you with your appointment date and time for your colonoscopy.) Rad Masters MD [Primary Care Provider] - (Follow up within 1-2 weeks.) Diet: Heart Healthy Addtl Attending Provider Instructions: Continue to keep your bowels moving regularly so you don't have to strain. Continue the hydrocortisone suppositories in the the rectum twice a day for 2 weeks to reduce inflammation in the rectum and control the bleeding. Continue a stool softener and fiber supplement as well. Do not take your Eliquis for 3 days. As long as you continue to NOT HAVE BLEEDING, you can restart your Eliquis on Monday evening 04/25/21. Dr. Schmid of Gastroenterology will perform a colonoscopy once you are off quarantine from [facility]. You should remain in quarantine until 05/01/21. Continue taking the dexamethasone 6m once daily x 1 more week for your cough. Follow up with your PCP within 1-2 weeks. Pending Studies at Discharge: No Stand-Alone Forms: [facility], Smoking Cessation Medications and DC Order Prescriptions: New docusate sodium 100 mg Capsule 100 mg PO BID Qty: 60 RF: 0 hydrocortisone acetate [Anucort-HC] 25 mg Suppository 25 mg AK BID Qty: 24 RF: 0 dexamethasone 6 mg tablet 6 mg PO DAILY Qty: 7 RF: 0 Continued pantoprazole 40 mg tablet,delayed release (DR/EC) 40 mg PO BID Qty: 180 RF: 3 metoprolol tartrate 25 mg tablet 50 mg PO BID Qty: 180 RF: 3 Centrum Silver Men 300-600-300 mcg tablet 1 tab PO QAM RF: 0 indapamide 1.25 mg tablet 1.25 mg PO QAM RF: 0 acetaminophen 500 mg tablet 1,000 mg PO DAILY PRN (Reason: Pain) RF: 0 Probiotic 3 billion cell Capsule 3,000 mmu cells PO QAM RF: 0 ipratropium bromide 0.03 % spray,non-aerosol 1 - 2 spray intranasal BID PRN (Reason: dryness) RF: 0 Eliquis 2.5 mg tablet 2.5 mg PO BID Qty: 180 RF: 3 Discharge Orders: Discharge Order (Routine); Ordered 04/23/21 Ordered By: Yecenia Corcoran Admission Data Admit Date/Time: 04/21/21 15:15 Attending Provider: Yecenia Corcoran Admit Provider: Shai Merida Primary Care Provider: Rad Masters Other Providers: Shai Merida ; Brayan Schmid Coding Level of Care Code D/C DAY MANAGEMENT >30 MINS Diagnoses Rectal bleeding K62.5 Proctitis K62.89 COVID-19 U07.1 Paroxysmal atrial fibrillation I48.0 Hypertension I10 History of aortic valve replacement with bioprosthetic valve Z95.3 Dilated bile duct K83.8 DVT prophylaxis Z29.9
[2021-04-23] MEDS: dexAMETHasone 6 MG in SYRINGE 0 ML IV SCH (15:30)
== END 2021-04-23 16:10 | disposition home or self-care (01) | DRG 393 ==
LOC: ED 09:33 → SUATTDRO 15:15 → 2S 15:15